=== PATIENT | male | born 1975 | race Caucasian/White ===

== ENCOUNTER 2019-01-09 11:28 | Emergency (ER) | payer OTHER, SELFPAY ==
[2019-01-09 11:22] VITALS: BP 107/67; BP 121/67; PULSE 64; PULSE 65; RESP 18; TEMP 36.4; O2SAT 100
--- NOTE | 2019-01-09 11:36 | DI.RAD.S_ITS ---
PROCEDURE: XR ABDOMEN 1V INDICATIONS: pain, syncope TECHNIQUE: One view of the abdomen acquired. COMPARISON: None. FINDINGS: Surgical changes and devices: None. Bowel: Bowel gas pattern is normal. Soft tissues: No suspicious abdominal calcifications. Visualized solid organ contours appear normal in size. Bones: No suspicious bony lesions. IMPRESSION: Normal for age, source of current abdominal pain symptoms is not seen. Dictated by: Abram Romano M.D. on 01/09/2019 at 12:11 Approved by: Abram Romano M.D. on 01/09/2019 at 12:11
--- NOTE | 2019-01-09 11:37 | DI.RAD.S_ITS ---
PROCEDURE: XR CHEST 1V INDICATIONS: chest pain, syncope TECHNIQUE: One view of the chest was acquired. COMPARISON: [facility], CHEST 1 VIEW, 10/04/2011, 23:00. [facility], CHEST 1 VIEW, 02/22/2008, 17:59. FINDINGS: Surgical changes and devices: None. Lungs and pleura: Lungs are clear. No pleural effusions or pneumothorax. Mediastinum: Mediastinal contours appear normal. Heart size is normal. Bones and chest wall: No suspicious bony lesions. Overlying soft tissues appear unremarkable. IMPRESSION: Normal for age considering reduced inspiratory volume, source of current chest pain symptoms is not seen. Dictated by: Abram Romano M.D. on 01/09/2019 at 12:11 Approved by: Abram Romano M.D. on 01/09/2019 at 12:11
[2019-01-09 11:47] LABS: Add Manual Diff / Slide Review NO; Basophils Absolute Auto 0 /uL (0-100); Basophils Percent Auto 0.3 % (0-2); Eosinophils Absolute Auto 100 /uL (0-450); Eosinophils Percent Auto 1.2 % (2-4); Hematocrit 44.7 % (41-53); Hemoglobin 15.2 g/dL (13.5-17.5); Lymphocytes Absolute Auto 4000 /uL (1100-4500); Lymphocytes Percent Auto 45.9 % (25-40); Mean Corpuscular Hemoglobin 30.3 PG (26-34); Mean Corpuscular Volume 89.3 fL (80-100); Monocytes Absolute Auto 700 /uL (0-900); Monocytes Percent Auto 8.1 % (3-14); Neutrophils Absolute Auto 3900 /uL (1500-7000); Neutrophils Percent Auto 44.5 % (50-75); Platelet Count 302 X10^3/uL (150-400); Red Blood Cell Count 5.01 X10^6/uL (4.5-5.9); Red Cell Distribution Width 13.2 % (11.6-14.8); White Blood Cell Count 8.8 X10^3/uL (4.5-11.0)
[2019-01-09 11:54] LABS: D Dimer 703 ng/mL (<230)
[2019-01-09 11:57] LABS: Alanine Aminotransferase 75 IU/L (21-72); Albumin 4.3 g/dL (3.5-5.0); Albumin Globulin Ratio 1.4 (1.0-2.8); Alkaline Phosphatase 97 U/L (38-126); Aspartate Aminotransferase 88 IU/L (17-59); Bilirubin Total 0.6 mg/dL (0.2-1.3); Blood Urea Nitrogen 16 mg/dL (9-20); Calcium 9.3 mg/dL (8.4-10.2); Carbon Dioxide 28 mmol/L (22-32); Chloride 105 mmol/L (98-107); Creatine Kinase 54 U/L (55-170); Estimated Glomerular Filt Rate > 60.0 mL/min (>60); Glucose 107 mg/dL (70-100); HEMOLYSIS 18 (0-50); Potassium 3.8 mmol/L (3.4-5.1); Sodium 141 mmol/L (137-145); Total Protein 7.3 g/dL (6.3-8.2)
[2019-01-09 12:04] LABS: B Type Natriuretic Peptide < 100 (<100)
[2019-01-09 12:09] LABS: Troponin I < 0.012 ng/mL (0.01-0.034)
--- NOTE | 2019-01-09 12:10 | DI.CT.S_ITS ---
PROCEDURE: CT ANGIO CHEST PE PROTOCOL INDICATIONS: chest pain, SOB, syncope, elevated trop/bnp/dimer TECHNIQUE: After the administration of intravenous contrast, 2 mm thick sections acquired from the pulmonary apices to the posterior costophrenic angles. 3-dimensional maximum intensity projection (MIP) coronal and sagittal reformats were then acquired through the thorax. For radiation dose reduction, the following was used: automated exposure control, adjustment of mA and/or kV according to patient size. COMPARISON: None. FINDINGS: Image quality: Excellent. Pulmonary arteries: Pulmonary arteries are normal in size, and demonstrate no intraluminal filling defects to suggest central pulmonary embolism. Lungs and pleura: Lungs are clear. No pleural effusions or pneumothorax. Central and peripheral airways are patent. Mediastinum: Heart size is normal, without pericardial effusion. No mediastinal or hilar adenopathy. Thoracic aorta is normal in caliber and enhancement. Circumferential wall thickening noted in the distal esophagus. Bones and chest wall: No suspicious bony lesions. Ribs and thoracic spine appear intact throughout. Spine degenerative disc disease and facet arthropathy.Thyroid gland is within normal limits where visualized. No axillary or supraclavicular adenopathy. Abdomen: Visualized upper abdominal solid organs appear normal in the early arterial phase of enhancement. IMPRESSION: 1. No pulmonary embolus 2. No lung consolidation or pleural fluid collections. 3. Circumferential wall thickening involving the distal esophagus. Recommend barium contrast an esophagram or endoscopy to exclude neoplastic process when clinically feasible. Dictated by: Skylar Navarrete MD, PhD on 01/09/2019 at 11:29 Approved by: Skylar Navarrete MD, PhD on 01/09/2019 at 11:35
[2019-01-09 12:11] VITALS: BP 123/72; PULSE 82; RESP 20; O2SAT 100
[2019-01-09] MEDS: SODIUM CHLORIDE 0.9% 1,000 ML 1000 ML IV (12:15)
--- NOTE | 2019-01-09 13:10 | ED_ITS ---
HPI - Syncope General Chief Complaint: Syncope Stated Complaint: syncope Time Seen by Provider: 01/09/19 11:32 Source: patient and EMS Mode of arrival: EMS Limitations: no limitations History of Present Illness HPI narrative: 43-year-old male nonsmoker without history of drinking presents by EMS evaluation of a syncopal episode after an episode of abdominal pain earlier today. He developed this pain and then felt himself become lightheaded and had a syncopal episode. He denies nausea or vomiting. He denies any history of the same. He denies recent injury, surgery or travel. He has had no fever or chills. He denies any chest pain or shortness of breath. He describes abdominal pain reaching across his epigastrium, nothing lower. He has had no change in bowel habits MD complaint: loss of consciousness and felt faint Onset (ago): hour(s) -: second(s) Prodromal symptoms: lightheaded Witnessed: yes - by bystander Context: at rest Injuries sustained associated with event: none Current symptoms: none Treatments prior to arrival: none Related Data Previous Rx's Medication Instructions Recorded ciprofloxacin HCl 500 mg PO BID #20 tab 01/09/19 hydrocodone-acetaminophen 1 tab PO Q4-6H PRN #10 tab 01/09/19 metronidazole [Flagyl] 500 mg PO Q8H 7 Days #21 tab 01/09/19 ondansetron 4 mg PO TID-QID PRN #10 tab 01/09/19 Allergies Allergy/AdvReac Type Severity Reaction Status Date / Time No Known Drug Allergies Allergy Verified 01/09/19 11:45 Review of Systems Constitutional Constitutional: Denies chills, Denies fatigue, Denies fever(s), Denies frequent falls, Denies lethargy and Denies weakness Eyes Eyes: Denies change in vision, Denies eye discharge, Denies irritation and Denies loss of vision ENT Ears, Nose, Mouth, and Throat: Denies change in voice, Denies dizziness, Denies neck pain, Denies sore throat and Denies throat swelling Cardiovascular Cardiovascular: Denies chest pain, Reports diaphoresis, Reports syncope, Denies irregular heart rhythm, Reports lightheadedness, Denies palpitations, Denies dyspnea, Denies dyspnea on exertion and Denies orthopnea Respiratory Respiratory: Denies cough, Denies dyspnea, Denies dyspnea on exertion and Denies wheezing Gastrointestinal Gastrointestinal: Reports abdominal pain, Denies change in bowel habits, Denies diarrhea, Denies nausea and Denies vomiting Genitourinary Genitourinary: Denies hematuria, Denies flank pain, Denies urinary incontinence and Denies urinary urgency Musculoskeletal Musculoskeletal: Denies back pain, Denies muscle weakness, Denies neck pain, Denies numbness and Denies tingling Integumentary/Breasts Skin/Breast: Denies pruritus, Denies erythema, Denies rash and Denies wounds Neurologic Neurologic: Denies behavioral changes, Denies confusion, Denies dizziness, Reports syncope, Denies frequent falls, Denies loss of vision, Denies numbness, Denies tingling and Denies weakness Psychiatric Psychiatric: Denies anxiety, Denies behavioral changes, Denies confusion, Denies depression, Denies homicidal ideation and Denies suicidal ideation Endocrine Endocrine: Denies fatigue, Denies flushing and Denies palpitations Hematologic/Lymphatic Hematologic/Lymphatic: Denies easy bruising Allergic/Immunologic Allergic/Immunologic: Denies urticaria, Denies throat swelling and Denies wheezing Patient History Surgical History Social History Smoking Status: Never smoker Social History Social History Smoking Status: Never smoker alcohol intake frequency: 0-2 drinks per day Substance Use Type: does not use Exam Narrative Exam Narrative: GENERAL: [43] year old patient appears stated age. Well- nourished, well-developed patient, in mild distress. Anxious, diaphoretic on arrival HEAD: Atraumatic. Normocephalic. EYES: Pupils equal round and reactive. Extraocular motions intact. No scleral icterus. No injection or drainage. ENT: Nose without bleeding, purulent drainage. Throat without erythema, tonsillar hypertrophy or exudate. Airway patent. NECK: Trachea midline. Non tender CARDIOVASCULAR: Regular rate and rhythm without murmurs, gallops, or rubs. RESPIRATORY: Clear to auscultation. Breath sounds equal bilaterally. No wheezes, rales, or rhonchi. GASTROINTESTINAL: Abdomen soft, tender in epigastrium, nondistended. EXTREMITIES: No edema or joint tenderness. BACK: Nontender without deformity or crepitance. No flank tenderness. NEURO: AOx3. SKIN: No rash or erythema of visible areas Initial Vital Signs Initial Vital Signs: Vital Signs Temperature 97.6 F 01/09/19 11:22 Pulse Rate 64 01/09/19 11:22 Respiratory Rate 18 01/09/19 11:22 Blood Pressure 121/67 01/09/19 11:22 Pulse Oximetry 100 01/09/19 11:22 Course Orders Ordered: ED Orders 01/09/19 11:36 XR abdomen 1V Stat B Type Natriuretic Peptide Stat Complete Blood Count AUTO DIFF Stat Comprehensive Metabolic Panel Stat D Dimer Stat Troponin & CK Cardiac Panel Stat EKG-12 Lead Stat 01/09/19 11:37 XR chest 1V Stat 01/09/19 12:10 CT angio chest PE protocol Stat 01/09/19 13:14 US abdomen complete Stat Discontinued Medications Sodium Chloride (Normal Saline 0.9%) 1,000 mls @ 1,000 mls/hr IV BOLUS ONE Stop: 01/09/19 12:35 Last Infusion: 01/09/19 13:37 Dose: 0 mls/hr Documented by: Admin: 01/09/19 12:15 Dose: 1,000 mls/hr Documented by: BERNA Sodium Chloride (Normal Saline 0.9%) 500 mls @ 1,000 mls/hr IV BOLUS ONE Stop: 01/09/19 14:50 Last Infusion: 01/09/19 15:33 Dose: 0 mls/hr Documented by: Admin: 01/09/19 14:29 Dose: 1,000 mls/hr Documented by: MINE Reevaluation(s) Reevaluation #1: Patient continues to rest comfortably Consultations Consultation #1: Discussion with on-call surgery. Given lack of white count, elevated bilirubin, vomiting, fever, or persistent pain the patient can be treated with outpatient medications and antibiotics and close follow-up with return precautions. Vital Signs Vital signs: Vital Signs - 8 hr 01/09/19 14:00 01/09/19 15:40 Pulse Rate 111 H 92 H Respiratory Rate 18 20 Blood Pressure 140/87 Blood Pressure [Left Arm] 143/89 H Pulse Oximetry 98 100 MDM - Syncope Lab Data Result diagrams: 01/09/19 11:36 01/09/19 11:36 Labs: Lab Results 01/09/19 01/09/19 01/09/19 Range/Units 11:36 11:36 11:36 WBC 8.8 (4.5-11.0) X10^3/uL RBC 5.01 (4.5-5.9) X10^6/uL Hgb 15.2 (13.5-17.5) g/dL Hct 44.7 (41-53) % MCV 89.3 (80-100) fL MCH 30.3 (26-34) PG MCHC 34.0 (30-36) % RDW 13.2 (11.6-14.8) % Plt Count 302 (150-400) X10^3/uL Neut % (Auto) 44.5 L (50-75) % Lymph % (Auto) 45.9 H (25-40) % [place] % (Auto) 8.1 (3-14) % Eos % (Auto) 1.2 L (2-4) % Baso % (Auto) 0.3 (0-2) % Neut # (Auto) 3900 (4979-2128) /uL Lymph # (Auto) 4000 (1417-0319) /uL [place] # (Auto) 700 (0-900) /uL Eos # (Auto) 100 (0-450) /uL Baso # (Auto) 0 (0-100) /uL D-Dimer 703 H (<230) ng/mL Sodium 141 (137-145) mmol/L Potassium 3.8 (3.4-5.1) mmol/L Chloride 105 (98-107) mmol/L Carbon Dioxide 28 (22-32) mmol/L BUN 16 (9-20) mg/dL Creatinine 0.80 (0.66-1.25) mg/dL Estimated GFR > 60.0 (>60) mL/min BUN/Creatinine Ratio 20.0 (6-22) Glucose 107 H (70-100) mg/dL Calcium 9.3 (8.4-10.2) mg/dL Total Bilirubin 0.6 (0.2-1.3) mg/dL AST 88 H (17-59) IU/L ALT 75 H (21-72) IU/L Alkaline Phosphatase 97 (38-126) U/L Total Creatine Kinase 54 L (55-170) U/L CK-MB (CK-2) TNP CK-MB (CK-2) Rel Index TNP Troponin I < 0.012 (0.01-0.034) ng/mL B-Natriuretic Peptide < 100 (<100) Total Protein 7.3 (6.3-8.2) g/dL Albumin 4.3 (3.5-5.0) g/dL Globulin 3.0 (1.7-4.1) g/dL Albumin/Globulin Ratio 1.4 (1.0-2.8) Point of Care Testing Glucose POC 133 Urine Dip Bedside Urine Glucose Negative Bedside Urine Bilirubin - Negative Bedside Urine Ketone - Negative Urine Specific [place] 1.010 Bedside Urine Occult Blood - Negative Bedside Urine pH 7.5 Bedside Urine Protein - Negative Bedside Urine Urobilinogen - Negative Bedside Urine Nitrite - Negative Bedside Urine Leukocytes - Negative Esterase Imaging Data Chest x-ray: Radiologist's impression: [address] [address] XRay Report Signed Patient: Lenin Whalen [facility]#: [id number] : 1975Acct:[id number] Age/Sex: 43 / MDate of Service: 01/09/19 Loc: ED Accession Number: [id number] Procedure: XR chest 1V Ordering Provider: Carlos Esteban D.O. PROCEDURE: XR CHEST 1V INDICATIONS: chest pain, syncope TECHNIQUE: One view of the chest was acquired. COMPARISON: [facility], , CHEST 1 VIEW, 10/04/2011, 23:00. [facility], , CHEST 1 VIEW, 02/22/2008, 17:59. FINDINGS: Surgical changes and devices: None. Lungs and pleura: Lungs are clear. No pleural effusions or pneumothorax. Mediastinum: Mediastinal contours appear normal. Heart size is normal. Bones and chest wall: No suspicious bony lesions. Overlying soft tissues appear unremarkable. IMPRESSION: Normal for age considering reduced inspiratory volume, source of current chest pain symptoms is not seen. Dictated by: Abram Romano M.D. on 01/09/2019 at 12:11 Approved by: Abram Romano M.D. on 01/09/2019 at 12:11 CT scan - chest: Radiologist's impression: MarleeJoelchandrakant I 43 M [address] [address] [address] Scan Report Signed Patient: Lenin Whalen [facility]#: [id number] : 1975Acct:[id number] Age/Sex: 43 / MDate of Service: 01/09/19 Loc: ED Accession Number: [id number] Procedure: CT angio chest PE protocol Ordering Provider: Carlos Esteban D.O. PROCEDURE: CT ANGIO CHEST PE PROTOCOL INDICATIONS: chest pain, SOB, syncope, elevated trop/bnp/dimer TECHNIQUE: After the administration of intravenous contrast, 2 mm thick sections acquired from the pulmonary apices to the posterior costophrenic angles. 3-dimensional maximum intensity projection (MIP) coronal and sagittal reformats were then acquired through the thorax. For radiation dose reduction, the following was used: automated exposure control, adjustment of mA and/or kV according to patient size. COMPARISON: None. FINDINGS: Image quality: Excellent. Pulmonary arteries: Pulmonary arteries are normal in size, and demonstrate no intraluminal filling defects to suggest central pulmonary embolism. Lungs and pleura: Lungs are clear. No pleural effusions or pneumothorax. Central and peripheral airways are patent. Mediastinum: Heart size is normal, without pericardial effusion. No mediastinal or hilar adenopathy. Thoracic aorta is normal in caliber and enhancement. Circumferential wall thickening noted in the distal esophagus. Bones and chest wall: No suspicious bony lesions. Ribs and thoracic spine appear intact throughout. Spine degenerative disc disease and facet arthropathy.Thyroid gland is within normal limits where visualized. No axillary or supraclavicular adenopathy. Abdomen: Visualized upper abdominal solid organs appear normal in the early arterial phase of enhancement. IMPRESSION: 1. No pulmonary embolus 2. No lung consolidation or pleural fluid collections. 3. Circumferential wall thickening involving the distal esophagus. Recommend barium contrast an esophagram or endoscopy to exclude neoplastic process when clinically feasible. Dictated by: Skylar Navarrete MD, PhD on 01/09/2019 at 11:29 Approved by: Skylar Navarrete MD, PhD on 01/09/2019 at 11:35 US - abdomen: Radiologist's impression: [address] [address] Ultrasound Report Signed Patient: Lenin Whalen [facility]#: [id number] : 1975Acct:[id number] Age/Sex: 43 / MDate of Service: 01/09/19 Loc: ED Accession Number: [id number] Procedure: US abdomen complete Ordering Provider: Carlos Esteban D.O. PROCEDURE: US ABDOMEN COMPLETE INDICATIONS: SEVERE EPIGASTRIC PAIN TECHNIQUE: Real-time scanning was performed of the abdominal and retroperitoneal organs, with image documentation. COMPARISON: None. FINDINGS: Liver: Liver is normal in size and homogeneous in echotexture except for slight prominence of the echogenicity along the vessel marsh along the portal triads. This may indicate presence of mild periportal edema.. Gallbladder: The gallbladder contains at least 3 non-mobile echogenic shadowing stones with additional debris, with the largest stone measuring up to 1.2 cm. Biliary ducts: Not seen due to bowel gas Pancreas: Visualized portions of the pancreas are sonographically normal. Spleen: Spleen is at upper limits of normal in size at 13 mm craniocaudad and homogeneous in echotexture. Kidneys: Kidneys are normal in size and echotexture. Right kidney measures 12.8 cm long; left kidney measures 13.9 cm long. No hydronephrosis or nephrolithiasis. No solid masses. Possible mild hydronephrosis versus normal anatomic variant prominence of the renal collecting system bilaterally. Aorta: Visualized aorta is normal in caliber at less than 3 cm. Iliacs: Proximal common iliac arteries are normal in caliber at less than 2.5 cm. IVC: Intrahepatic inferior vena cava is patent. Miscellaneous: No free abdominal fluid. IMPRESSION: 1. Gallstones present within the gallbladder lumen, which do not appear fully mobile. Gallbladder wall thickening is not present, nor is there focal tenderness but episodic biliary colic may be associated. 2. No intra-or extrahepatic biliary distention found but the common duct is poorly seen due to overlying bowel gas near the pancreas. 3. Nonspecific appearance of the renal pelvis bilaterally slightly prominent, but considered more likely a manifestation of normal anatomic variant extrarenal pelvis rather than true hydronephrosis. Dictated by: Abram Romano M.D. on 01/09/2019 at 14:49 Approved by: Abram Romano M.D. on 01/09/2019 at 14:53 Discharge Plan Departure Patient Disposition: Home Clinical Impression: Biliary colic Discharge Date/Time: 01/09/19 15:40 Instructions: DI for Biliary Colic Activity Restrictions/Additional Instructions: 1. Drink plenty of fluids with frequent small sips. 2. For the next 24 hours a clear liquid diet is advised. After that please employ a brat diet which would include bananas, rice, apples, toast. 3. Please take medications as directed. 4. Please follow-up with [facility]. Call the office and let them know we ask that you be seen in follow up. 5. Please return to the emergency Department for any worsening or persistent symptoms, such as vomiting, increasing pain or fever. Prescriptions: New hydrocodone-acetaminophen 5-325 mg tablet 1 tab PO Q4-6H PRN (Reason: pain) Qty: 10 RF: 0 ondansetron 4 mg tablet,disintegrating 4 mg PO TID-QID PRN (Reason: nausea and vomiting) Qty: 10 RF: 0 metronidazole [Flagyl] 500 mg tablet 500 mg PO Q8H 7 Days Qty: 21 RF: 0 ciprofloxacin HCl 500 mg tablet 500 mg PO BID Qty: 20 RF: 0 Referrals: Andreas Ray MD [Physician] - Keshawn Gandhi MD [Primary Care Provider] -
--- NOTE | 2019-01-09 13:14 | DI.US.S_ITS ---
PROCEDURE: US ABDOMEN COMPLETE INDICATIONS: SEVERE EPIGASTRIC PAIN TECHNIQUE: Real-time scanning was performed of the abdominal and retroperitoneal organs, with image documentation. COMPARISON: None. FINDINGS: Liver: Liver is normal in size and homogeneous in echotexture except for slight prominence of the echogenicity along the vessel marsh along the portal triads. This may indicate presence of mild periportal edema.. Gallbladder: The gallbladder contains at least 3 non-mobile echogenic shadowing stones with additional debris, with the largest stone measuring up to 1.2 cm. Biliary ducts: Not seen due to bowel gas Pancreas: Visualized portions of the pancreas are sonographically normal. Spleen: Spleen is at upper limits of normal in size at 13 mm craniocaudad and homogeneous in echotexture. Kidneys: Kidneys are normal in size and echotexture. Right kidney measures 12.8 cm long; left kidney measures 13.9 cm long. No hydronephrosis or nephrolithiasis. No solid masses. Possible mild hydronephrosis versus normal anatomic variant prominence of the renal collecting system bilaterally. Aorta: Visualized aorta is normal in caliber at less than 3 cm. Iliacs: Proximal common iliac arteries are normal in caliber at less than 2.5 cm. IVC: Intrahepatic inferior vena cava is patent. Miscellaneous: No free abdominal fluid. IMPRESSION: 1. Gallstones present within the gallbladder lumen, which do not appear fully mobile. Gallbladder wall thickening is not present, nor is there focal tenderness but episodic biliary colic may be associated. 2. No intra-or extrahepatic biliary distention found but the common duct is poorly seen due to overlying bowel gas near the pancreas. 3. Nonspecific appearance of the renal pelvis bilaterally slightly prominent, but considered more likely a manifestation of normal anatomic variant extrarenal pelvis rather than true hydronephrosis. Dictated by: Abram Romano M.D. on 01/09/2019 at 14:49 Approved by: Abram Romano M.D. on 01/09/2019 at 14:53
[2019-01-09 14:00] VITALS: BP 143/89; PULSE 111; RESP 18; O2SAT 98
[2019-01-09] MEDS: SODIUM CHLORIDE 0.9% 500 ML 1000 ML IV (14:29)
[2019-01-09 15:40] VITALS: BP 140/87; PULSE 92; RESP 20; O2SAT 100
== END 2019-01-09 15:40 | disposition home or self-care (01) ==
PROVIDERS: Emergency Provider Emergency Medicine; PCP Internal Medicine
DX: K80.50 Calculus of bile duct without cholangitis or cholecystitis without obstruction (principal); R10.13 Epigastric pain; R07.9 Chest pain, unspecified; R06.02 Shortness of breath; R55 Syncope and collapse; R42 Dizziness and giddiness; R79.89 Other specified abnormal findings of blood chemistry
CPT/HCPCS: 36415; 71045; 71275; 74018; 76700; 80053; 81003; 82550; 82962; 83880; 84484; 85025; 85379; 93005; 96360; 96361; 99283; 99285; Q9967

== ENCOUNTER 2019-01-30 09:36 | Emergency (ER) | payer OTHER, SELFPAY ==
[2019-01-30 09:40] VITALS: BP 148/98; PULSE 115; RESP 20; O2SAT 96; BMI 37.6
[2019-01-30 10:03] VITALS: TEMP 36.9
[2019-01-30 10:12] LABS: INR 1.1 (0.9-1.3); Prothrombin Time 13.2 SECONDS (10.1-12.7)
[2019-01-30 10:14] LABS: PTT Partial Thromboplastin Tim 34 SECONDS (26.4-36.2)
[2019-01-30 10:15] LABS: Add Manual Diff / Slide Review NO; Basophils Absolute Auto 0 /uL (0-100); Basophils Percent Auto 0.5 % (0-2); Eosinophils Absolute Auto 300 /uL (0-450); Eosinophils Percent Auto 2.7 % (2-4); Hematocrit 44.6 % (41-53); Hemoglobin 15.5 g/dL (13.5-17.5); Lymphocytes Absolute Auto 1500 /uL (1100-4500); Lymphocytes Percent Auto 15.1 % (25-40); Mean Corpuscular HGB Conc 34.7 % (30-36); Mean Corpuscular Hemoglobin 30.7 PG (26-34); Mean Corpuscular Volume 88.5 fL (80-100); Monocytes Absolute Auto 900 /uL (0-900); Monocytes Percent Auto 8.9 % (3-14); Neutrophils Absolute Auto 7400 /uL (1500-7000); Neutrophils Percent Auto 72.8 % (50-75); Platelet Count 229 X10^3/uL (150-400); Red Blood Cell Count 5.05 X10^6/uL (4.5-5.9); Red Cell Distribution Width 13.3 % (11.6-14.8); White Blood Cell Count 10.2 X10^3/uL (4.5-11.0)
[2019-01-30 10:17] LABS: Alanine Aminotransferase 59 IU/L (<50); Albumin 4.2 g/dL (3.5-5.0); Albumin Globulin Ratio 1.3 (1.0-2.8); Alkaline Phosphatase 108 U/L (38-126); Aspartate Aminotransferase 33 IU/L (17-59); BUN Creatinine Ratio 8.8 (6-22); Bilirubin Total 0.8 mg/dL (0.2-1.3); Blood Urea Nitrogen 7 mg/dL (9-20); Calcium 9.3 mg/dL (8.4-10.2); Carbon Dioxide 26 mmol/L (22-32); Chloride 105 mmol/L (98-107); Estimated Glomerular Filt Rate > 60.0 mL/min (>60); Globulin 3.3 g/dL (1.7-4.1); Glucose 109 mg/dL (70-100); HEMOLYSIS < 15 (0-50); Lipase 28 U/L (23-300); Potassium 3.5 mmol/L (3.4-5.1); Sodium 138 mmol/L (137-145); Total Protein 7.5 g/dL (6.3-8.2)
--- NOTE | 2019-01-30 11:56 | DI.CT.S_ITS ---
PROCEDURE: CT ABDOMEN PELVIS W CON INDICATIONS: LLQ pain with fever TECHNIQUE: After the administration of intravenous contrast, 5 mm thick sections acquired from the diaphragm to the symphysis. 5 mm coronal and sagittal reformats were acquired. For radiation dose reduction, the following was used: automated exposure control, adjustment of mA and/or kV according to patient size. COMPARISON: [facility], , US ABDOMEN COMPLETE, 01/09/2019, 13:40. FINDINGS: Image quality: Diagnostic ABDOMEN: Lung bases: Lung bases are clear. Heart size is normal. Solid organs: Liver is normal in size and enhancement. Gallbladder is not inflamed or enlarged. Biliary system is non dilated. Pancreatic atrophy is present with fatty infiltration. No inflammation is evident surrounding the pancreas.. Spleen is normal in size and enhancement. No adrenal nodules. Kidneys demonstrate normal size and enhancement, without hydronephrosis. Peritoneum and bowel: Moderate areas of wall thickening are evident involving the descending colon, sigmoid colon, and rectum. Additional patchy areas of mild wall thickening are evident involving small bowel loops within the right lower quadrant. Fatty infiltration involving the wall of the terminal ileum is evident. No dilated small bowel loops are evident. The appendix is not clearly evident. No free fluid, loculated fluid collection or free air is identified. There is a small hiatal hernia. Nodes and vessels: No retroperitoneal or mesenteric adenopathy by size criteria. Aorta and inferior vena cava are normal in size. Miscellaneous: No acute fracture or dislocation is identified. There is no suspicious osseous lesion. PELVIS: Genitourinary: Bladder wall thickness is normal. Miscellaneous: There may be a small fat containing left internal hernia. No right ankle hernia. No pelvic adenopathy is appreciated. No free fluid or loculated fluid collections are identified. Bones: No suspicious bony lesions. No acute pelvic fractures are evident. [id number] degenerative changes of the hips are noted. IMPRESSION: 1. There is wall thickening involving the distal colon are suspicious for colitis. 2. Small bowel wall thickening involving multiple right lower quadrant small bowel loops and fatty infiltration of the terminal ileum may represent a chronic inflammatory process, such as seen with Crohn's disease and clinical correlation is recommended. 3. No bowel obstruction. 4. Hiatal hernia. 5. Small fat containing left inguinal hernia. Dictated by: David Andrews M.D. on 01/30/2019 at 11:27 Approved by: David Andrews M.D. on 01/30/2019 at 11:31
[2019-01-30 12:12] VITALS: BP 152/92; PULSE 98; RESP 18; O2SAT 97
--- NOTE | 2019-01-30 13:28 | ED.ABDPAIN ---
HPI - Abdominal Pain <VOLODYMYR Noland - Last Filed: 01/31/19 03:16> General Chief Complaint: Abdominal Pain Stated Complaint: gallbladder issue has worsen surg 02/10 for it Time Seen by Provider: 01/30/19 11:17 Source: patient Mode of arrival: Ambulatory Limitations: no limitations History of Present Illness HPI narrative: This is a 43-year-old gentleman, nonsmoker, who presents to ED with chief complain of left lower quadrant pain, nausea and nonbloody- diarrhea after each meals. Patient reports he has bowel movements about 6 to 7 times a day and has foot particles to loose watery stool. Patient also reports intermittent fever and T-max as 102 degree, night sweats and chills. Patient describes his discomfort as pressure. He has been on bland diet for last couple of weeks due to gallstones. Patient was evaluated in ED on 01/09/2019 and diagnosed with gallstones per ultrasound test and is scheduled to have cholecystectomy on 02/10/2019. Then, patient had right upper quadrant discomfort with this. Patient was discharged to home with 7 day course of Flagyl and 10 day course of Cipro after the visit and he had completed the medication on 01/19/19. Patient denies exposure to illness, eating bad food, international travel, history of diverticulosis or diverticulitis. Related Data Previous Rx's Medication Instructions Recorded ciprofloxacin HCl [Cipro] 500 mg PO BID 10 Days #20 tab 01/30/19 metronidazole [Flagyl] 500 mg PO TID 7 Days #21 tab 01/30/19 ondansetron 4 mg PO BID-TID PRN #7 tab 01/30/19 metronidazole [Flagyl] 500 mg PO TID 3 Days #9 tab 01/31/19 Allergies Allergy/AdvReac Type Severity Reaction Status Date / Time No Known Drug Allergies Allergy Verified 01/26/19 13:54 Review of Systems <VOLODYMYR Noland - Last Filed: 01/31/19 03:16> Review of Systems Narrative: General: See HPI HEENT: Denies sinus pain, ear pain, sore throat, difficulty swallowing, dizziness. Respiratory: Denies dyspnea, cough, wheezing, hemoptysis, sputum. Cardiovascular: Denies chest pain, palpitations, orthopnea, edema. Gastrointestinal: See HPI : Denies dysuria, frequency, incontinence, hematuria, urinary retention. Musculoskeletal: Denies weakness, joint pain or bony pain. Skin: Denies rash, skin lesions, or other. Neurologic: Denies weakness, headache, numbness, change in speech, confusion, seizures, incoordination. Psychiatric: No concerning psychosocial issues. 12-point review of systems is negative except for those stated above. Patient History <VOLODYMYR Noland - Last Filed: 01/31/19 03:16> Medical History Biliary colic (Acute) Gallstones (Acute) Obesity (Acute) Social History Smoking Status: Never smoker alcohol intake frequency: holidays/special occasions only Substance Use Type: does not use Exam <VOLODYMYR Noland - Last Filed: 01/31/19 03:16> Narrative Exam Narrative: GEN: Alert, oriented x 3, well appearing and nourished, and in no acute distress. Head: Normal cephalic, atraumatic. No scalp or temporal tenderness, palpable mass or rash. EYES: Pupils are equal, round, and reactive to light and accommodation. Extraocular muscles are intact bilaterally. There is no subconjunctival hemorrhage, exudate and sclera non-icteric. Nystagmus in bilateral eyes. ENT: Bilateral auditory canals and tympanic membranes clear. Hearing grossly intact. Nose without bleeding, purulent discharge or deviation. Facial sinuses nontender to palpate. Mucous membrane moist, no mucosal lesion. Throat without erythema, tonsillar hypertrophy or exudate. Uvula in midline, airway patent. Neck: Trachea in midline. No JVD, non-tender without lymphadenopathy. No masses or thyroid megaly. Supple, non-tender and no meningeal signs. CARDIAC: Normal regular rate and rhythm without murmurs, gallops, or rubs. No chest wall tenderness. No peripheral edema, cyanosis or pallor. Capillary refill is less than 2 seconds. RESPIRATORY: Lungs are clear to auscultate bilaterally. No cough, wheezes, rales, or rhonchi. No stridor, respiratory distress, increase work of breathing, or accessary muscle used. ABD: Abdomen soft, tender to palpate left lower quadrant and non-distended. No guarding or rebound tenderness to palpate. Bowel sounds are normal in all 4 quadrants. There is no palpable masses or organomegaly. EXT: Full painless ROM of all extremities with no loss of sensation, strength, effusion or edema. SKIN: Warm, dry, normal color for patient. No erythema, lesions or rash over visible areas. BACK: Nontender without deformity or crepitance. No flank tenderness. NEUROLOGICAL: Alert and oriented to place, time and person. Sensation and motor function intact bilaterally. No facial droops, dysphasia. PSYCHIATRIC: Good judgement and reason, without hallucinations, abnormal affect or abnormal behaviors during the examination. Patient is not suicidal. Initial Vital Signs Initial Vital Signs: Vital Signs Pulse Rate 115 H 01/30/19 09:40 Respiratory Rate 20 01/30/19 09:40 Blood Pressure 148/98 H 01/30/19 09:40 Pulse Oximetry 96 01/30/19 09:40 <Chuy Anders DO - Last Filed: 01/31/19 05:10> Initial Vital Signs Initial Vital Signs: Vital Signs Pulse Rate 115 H 01/30/19 09:40 Respiratory Rate 20 01/30/19 09:40 Blood Pressure 148/98 H 01/30/19 09:40 Pulse Oximetry 96 01/30/19 09:40 Scores <VOLODYMYR Noland - Last Filed: 01/31/19 03:16> GCS [place] coma scale eye opening: Spontaneous Jone coma scale verbal response: Orientated Jone coma scale motor response: Obey commands Jone coma scale total score: 15 Course <VOLODYMYR Noland - Last Filed: 01/31/19 03:16> Orders Ordered: ED Orders 01/30/19 09:55 Complete Blood Count AUTO DIFF Stat Comprehensive Metabolic Panel Stat Lactate (Lactic Acid) Stat Lipase Stat Partial Thromboplastin Time Stat Prothrombin Time INR Stat 01/30/19 10:20 EKG-12 Lead Stat 01/30/19 11:29 GI Panel (Film Array) Stat 01/30/19 11:56 CT abdomen pelvis w con Stat Reevaluation(s) Reevaluation #1: no change in abd pain. Time: 13:35 Consultations Consultation #1: DR. Younger and will evaluate the patient in ER. Time: 13:35 Vital Signs Vital signs: Vital Signs - 8 hr 01/30/19 09:40 01/30/19 10:03 01/30/19 12:12 Temperature 98.5 F Pulse Rate 115 H 98 H Respiratory Rate 20 18 Blood Pressure 148/98 H Blood Pressure [Left Arm] 152/92 H Pulse Oximetry 96 97 <Chuy Anders DO - Last Filed: 01/31/19 05:10> Orders Ordered: ED Orders 01/30/19 09:55 Complete Blood Count AUTO DIFF Stat Comprehensive Metabolic Panel Stat Lactate (Lactic Acid) Stat Lipase Stat Partial Thromboplastin Time Stat Prothrombin Time INR Stat 01/30/19 10:20 EKG-12 Lead Stat 01/30/19 11:29 GI Panel (Film Array) Stat 01/30/19 11:56 CT abdomen pelvis w con Stat Vital Signs Vital signs: Vital Signs - 8 hr 01/30/19 09:40 01/30/19 10:03 01/30/19 12:12 Temperature 98.5 F Pulse Rate 115 H 98 H Respiratory Rate 20 18 Blood Pressure 148/98 H Blood Pressure [Left Arm] 152/92 H Pulse Oximetry 96 97 MDM - Abdominal Pain <VOLODYMYR Noland - Last Filed: 01/31/19 03:16> Differential Diagnosis Differential diagnosis: Likely abdominal pain, diverticulitis and other (C diff infection, colitis, perforated bowel) Medical Records Attestation: I reviewed the patient's medical records. Lab Data Attestation: I reviewed the patient's lab results. Result diagrams: 01/30/19 09:55 01/30/19 09:55 Labs: Lab Results 01/30/19 01/30/19 01/30/19 Range/Units 09:55 09:55 09:55 WBC 10.2 (4.5-11.0) X10^3/uL RBC 5.05 (4.5-5.9) X10^6/uL Hgb 15.5 (13.5-17.5) g/dL Hct 44.6 (41-53) % MCV 88.5 (80-100) fL MCH 30.7 (26-34) PG MCHC 34.7 (30-36) % RDW 13.3 (11.6-14.8) % Plt Count 229 (150-400) X10^3/uL Neut % (Auto) 72.8 (50-75) % Lymph % (Auto) 15.1 L (25-40) % Linn % (Auto) 8.9 (3-14) % Eos % (Auto) 2.7 (2-4) % Baso % (Auto) 0.5 (0-2) % Neut # (Auto) 7400 H (2918-8220) /uL Lymph # (Auto) 1500 (1418-4154) /uL Linn # (Auto) 900 (0-900) /uL Eos # (Auto) 300 (0-450) /uL Baso # (Auto) 0 (0-100) /uL PT 13.2 H (10.1-12.7) SECONDS INR 1.1 (0.9-1.3) APTT 34 (26.4-36.2) SECONDS Sodium 138 (137-145) mmol/L Potassium 3.5 (3.4-5.1) mmol/L Chloride 105 (98-107) mmol/L Carbon Dioxide 26 (22-32) mmol/L BUN 7 L (9-20) mg/dL Creatinine 0.80 (0.66-1.25) mg/dL Estimated GFR > 60.0 (>60) mL/min BUN/Creatinine Ratio 8.8 (6-22) Glucose 109 H (70-100) mg/dL Lactate (0.7-2.1) mmol/L Calcium 9.3 (8.4-10.2) mg/dL Total Bilirubin 0.8 (0.2-1.3) mg/dL AST 33 (17-59) IU/L ALT 59 H (<50) IU/L Alkaline Phosphatase 108 (38-126) U/L Total Protein 7.5 (6.3-8.2) g/dL Albumin 4.2 (3.5-5.0) g/dL Globulin 3.3 (1.7-4.1) g/dL Albumin/Globulin Ratio 1.3 (1.0-2.8) Lipase 28 (23-300) U/L Stl C. cayetanensis PCR (Not Detect) Stool Rotavirus (PCR) (Not Detect) Stool Adenovirus (PCR) (Not Detect) Stool Astrovirus (PCR) (Not Detect) Stool Cryptosporidium PCR (Not Detect) Stl E.coli Shiga Tox PCR (Not Detect) St Sh/Enteroin Ecoli PCR (Not Detect) Stool E coli O157 PCR (Not Detect) Stl Enterotoxigenic E PCR (Not Detect) Stool EPEC (PCR) (Not Detect) Stl E. histolytica PCR (Not Detect) Stool Giardia Lamblia PCR (Not Detect) Stool Sapovirus (PCR) (Not Detect) Stl P. shigelloides PCR (Not Detect) St Y.enterocolitica PCR (Not Detect) Stool Vibrio (PCR) (Not Detect) Stl Vibrio cholerae PCR (Not Detect) Stl Enteroaggr Ecoli PCR (Not Detect) Stl Norovirus GI/GII PCR (Not Detect) Campylobacter (PCR) (Not Detect) C. difficile Tox (PCR) (Not Detect) Salmonella (PCR) (Not Detect) 01/30/19 01/30/19 Range/Units 09:55 14:07 WBC (4.5-11.0) X10^3/uL RBC (4.5-5.9) X10^6/uL Hgb (13.5-17.5) g/dL Hct (41-53) % MCV (80-100) fL MCH (26-34) PG MCHC (30-36) % RDW (11.6-14.8) % Plt Count (150-400) X10^3/uL Neut % (Auto) (50-75) % Lymph % (Auto) (25-40) % Linn % (Auto) (3-14) % Eos % (Auto) (2-4) % Baso % (Auto) (0-2) % Neut # (Auto) (4557-6499) /uL Lymph # (Auto) (6469-0367) /uL Linn # (Auto) (0-900) /uL Eos # (Auto) (0-450) /uL Baso # (Auto) (0-100) /uL PT (10.1-12.7) SECONDS INR (0.9-1.3) APTT (26.4-36.2) SECONDS Sodium (137-145) mmol/L Potassium (3.4-5.1) mmol/L Chloride (98-107) mmol/L Carbon Dioxide (22-32) mmol/L BUN (9-20) mg/dL Creatinine (0.66-1.25) mg/dL Estimated GFR (>60) mL/min BUN/Creatinine Ratio (6-22) Glucose (70-100) mg/dL Lactate 1.0 (0.7-2.1) mmol/L Calcium (8.4-10.2) mg/dL Total Bilirubin (0.2-1.3) mg/dL AST (17-59) IU/L ALT (<50) IU/L Alkaline Phosphatase (38-126) U/L Total Protein (6.3-8.2) g/dL Albumin (3.5-5.0) g/dL Globulin (1.7-4.1) g/dL Albumin/Globulin Ratio (1.0-2.8) Lipase (23-300) U/L Stl C. cayetanensis PCR Not detected (Not Detect) Stool Rotavirus (PCR) Not detected (Not Detect) Stool Adenovirus (PCR) Not detected (Not Detect) Stool Astrovirus (PCR) Not detected (Not Detect) Stool Cryptosporidium PCR Not detected (Not Detect) Stl E.coli Shiga Tox PCR Not detected (Not Detect) St Sh/Enteroin Ecoli PCR Not detected (Not Detect) Stool E coli O157 PCR Not detected (Not Detect) Stl Enterotoxigenic E PCR Not detected (Not Detect) Stool EPEC (PCR) Not detected (Not Detect) Stl E. histolytica PCR Not detected (Not Detect) Stool Giardia Lamblia PCR Not detected (Not Detect) Stool Sapovirus (PCR) Not detected (Not Detect) Stl P. shigelloides PCR Not detected (Not Detect) St Y.enterocolitica PCR Not detected (Not Detect) Stool Vibrio (PCR) Not detected (Not Detect) Stl Vibrio cholerae PCR Not detected (Not Detect) Stl Enteroaggr Ecoli PCR Not detected (Not Detect) Stl Norovirus GI/GII PCR Not detected (Not Detect) Campylobacter (PCR) Not detected (Not Detect) C. difficile Tox (PCR) Detected H (Not Detect) Salmonella (PCR) Not detected (Not Detect) Imaging Data CT scan - abdomen: Radiologist's impression: [address] [address] [address] Scan Report Signed Patient: Lenin Whalen [facility]#: [id number] : 1975Acct:[id number] Age/Sex: 43 / MDate of Service: 01/30/19 Loc: ED Accession Number: [id number] Procedure: CT abdomen pelvis w con Ordering Provider: Remy Nielsen PROCEDURE: CT ABDOMEN PELVIS W CON INDICATIONS: LLQ pain with fever TECHNIQUE: After the administration of intravenous contrast, 5 mm thick sections acquired from the diaphragm to the symphysis. 5 mm coronal and sagittal reformats were acquired. For radiation dose reduction, the following was used: automated exposure control, adjustment of mA and/or kV according to patient size. COMPARISON: [facility], , US ABDOMEN COMPLETE, 01/09/2019, 13:40. FINDINGS: Image quality: Diagnostic ABDOMEN: Lung bases: Lung bases are clear. Heart size is normal. Solid organs: Liver is normal in size and enhancement. Gallbladder is not inflamed or enlarged. Biliary system is non dilated. Pancreatic atrophy is present with fatty infiltration. No inflammation is evident surrounding the pancreas.. Spleen is normal in size and enhancement. No adrenal nodules. Kidneys demonstrate normal size and enhancement, without hydronephrosis. Peritoneum and bowel: Moderate areas of wall thickening are evident involving the descending colon, sigmoid colon, and rectum. Additional patchy areas of mild wall thickening are evident involving small bowel loops within the right lower quadrant. Fatty infiltration involving the wall of the terminal ileum is evident. No dilated small bowel loops are evident. The appendix is not clearly evident. No free fluid, loculated fluid collection or free air is identified. There is a small hiatal hernia. Nodes and vessels: No retroperitoneal or mesenteric adenopathy by size criteria. Aorta and inferior vena cava are normal in size. Miscellaneous: No acute fracture or dislocation is identified. There is no suspicious osseous lesion. PELVIS: Genitourinary: Bladder wall thickness is normal. Miscellaneous: There may be a small fat containing left internal hernia. No right ankle hernia. No pelvic adenopathy is appreciated. No free fluid or loculated fluid collections are identified. Bones: No suspicious bony lesions. No acute pelvic fractures are evident. [id number] degenerative changes of the hips are noted. IMPRESSION: 1. There is wall thickening involving the distal colon are suspicious for colitis. 2. Small bowel wall thickening involving multiple right lower quadrant small bowel loops and fatty infiltration of the terminal ileum may represent a chronic inflammatory process, such as seen with Crohn's disease and clinical correlation is recommended. 3. No bowel obstruction. 4. Hiatal hernia. 5. Small fat containing left inguinal hernia. Dictated by: David Andrews M.D. on 01/30/2019 at 11:27 Approved by: David Andrews M.D. on 01/30/2019 at 11:31 [facility] Narrative Medical decision making narrative: This is a 43-year-old gentleman who was recently diagnosed with gallstone and discharged to home with a course of antibiotic medication of Flagyl and Cipro who return to ED today with left lower quadrant pain with constitutional symptoms. Patient had completed antibiotic medications on 01/19/19. Patient is scheduled elective gallstone removal in 02/10/19. Patient denies history of colitis, diverticulitis in the past. Today's lab test was unremarkable. Patient was able to provide stool sample but the cultures pending. CT of abdomen pelvis was obtained indicated for possible colitis, multiple patchy areas in terminal ileum may indicating Crohn's disease. These findings were discussed with and she evaluated patient at the bedside. Patient offered pain medication but declined. Patient also declined admission for observation and colonoscopy. Patient agrees to follow up next week with [facility] and to schedule outpatient colonoscopy. Patient was discharged to home with another course of Cipro and Flagyl and probiotic per Dr. Younger and return precautions were discussed with the patient. Patient verbalized understanding and treatment plan. The patient's stool culture result came back in late evening and shows a positive test result for C diff. Patient will be contacted in the morning by morning nursing staff to stop Cipro and continue with Flagyl 500 mg t.i.d. dose for up to 10 days. Additional 3 day course of Flagyl 500 mg t.i.d. does was transmitted to [facility] pharmacy. <Chuy Anders DO - Last Filed: 01/31/19 05:10> Lab Data Labs: Lab Results 01/30/19 01/30/19 01/30/19 Range/Units 09:55 09:55 09:55 WBC 10.2 (4.5-11.0) X10^3/uL RBC 5.05 (4.5-5.9) X10^6/uL Hgb 15.5 (13.5-17.5) g/dL Hct 44.6 (41-53) % MCV 88.5 (80-100) fL MCH 30.7 (26-34) PG MCHC 34.7 (30-36) % RDW 13.3 (11.6-14.8) % Plt Count 229 (150-400) X10^3/uL Neut % (Auto) 72.8 (50-75) % Lymph % (Auto) 15.1 L (25-40) % Linn % (Auto) 8.9 (3-14) % Eos % (Auto) 2.7 (2-4) % Baso % (Auto) 0.5 (0-2) % Neut # (Auto) 7400 H (6691-7539) /uL Lymph # (Auto) 1500 (8739-2015) /uL Linn # (Auto) 900 (0-900) /uL Eos # (Auto) 300 (0-450) /uL Baso # (Auto) 0 (0-100) /uL PT 13.2 H (10.1-12.7) SECONDS INR 1.1 (0.9-1.3) APTT 34 (26.4-36.2) SECONDS Sodium 138 (137-145) mmol/L Potassium 3.5 (3.4-5.1) mmol/L Chloride 105 (98-107) mmol/L Carbon Dioxide 26 (22-32) mmol/L BUN 7 L (9-20) mg/dL Creatinine 0.80 (0.66-1.25) mg/dL Estimated GFR > 60.0 (>60) mL/min BUN/Creatinine Ratio 8.8 (6-22) Glucose 109 H (70-100) mg/dL Lactate (0.7-2.1) mmol/L Calcium 9.3 (8.4-10.2) mg/dL Total Bilirubin 0.8 (0.2-1.3) mg/dL AST 33 (17-59) IU/L ALT 59 H (<50) IU/L Alkaline Phosphatase 108 (38-126) U/L Total Protein 7.5 (6.3-8.2) g/dL Albumin 4.2 (3.5-5.0) g/dL Globulin 3.3 (1.7-4.1) g/dL Albumin/Globulin Ratio 1.3 (1.0-2.8) Lipase 28 (23-300) U/L Stl C. cayetanensis PCR (Not Detect) Stool Rotavirus (PCR) (Not Detect) Stool Adenovirus (PCR) (Not Detect) Stool Astrovirus (PCR) (Not Detect) Stool Cryptosporidium PCR (Not Detect) Stl E.coli Shiga Tox PCR (Not Detect) St Sh/Enteroin Ecoli PCR (Not Detect) Stool E coli O157 PCR (Not Detect) Stl Enterotoxigenic E PCR (Not Detect) Stool EPEC (PCR) (Not Detect) Stl E. histolytica PCR (Not Detect) Stool Giardia Lamblia PCR (Not Detect) Stool Sapovirus (PCR) (Not Detect) Stl P. shigelloides PCR (Not Detect) St Y.enterocolitica PCR (Not Detect) Stool Vibrio (PCR) (Not Detect) Stl Vibrio cholerae PCR (Not Detect) Stl Enteroaggr Ecoli PCR (Not Detect) Stl Norovirus GI/GII PCR (Not Detect) Campylobacter (PCR) (Not Detect) C. difficile Tox (PCR) (Not Detect) Salmonella (PCR) (Not Detect) 01/30/19 01/30/19 Range/Units 09:55 14:07 WBC (4.5-11.0) X10^3/uL RBC (4.5-5.9) X10^6/uL Hgb (13.5-17.5) g/dL Hct (41-53) % MCV (80-100) fL MCH (26-34) PG MCHC (30-36) % RDW (11.6-14.8) % Plt Count (150-400) X10^3/uL Neut % (Auto) (50-75) % Lymph % (Auto) (25-40) % Linn % (Auto) (3-14) % Eos % (Auto) (2-4) % Baso % (Auto) (0-2) % Neut # (Auto) (7020-4119) /uL Lymph # (Auto) (8563-8913) /uL Linn # (Auto) (0-900) /uL Eos # (Auto) (0-450) /uL Baso # (Auto) (0-100) /uL PT (10.1-12.7) SECONDS INR (0.9-1.3) APTT (26.4-36.2) SECONDS Sodium (137-145) mmol/L Potassium (3.4-5.1) mmol/L Chloride (98-107) mmol/L Carbon Dioxide (22-32) mmol/L BUN (9-20) mg/dL Creatinine (0.66-1.25) mg/dL Estimated GFR (>60) mL/min BUN/Creatinine Ratio (6-22) Glucose (70-100) mg/dL Lactate 1.0 (0.7-2.1) mmol/L Calcium (8.4-10.2) mg/dL Total Bilirubin (0.2-1.3) mg/dL AST (17-59) IU/L ALT (<50) IU/L Alkaline Phosphatase (38-126) U/L Total Protein (6.3-8.2) g/dL Albumin (3.5-5.0) g/dL Globulin (1.7-4.1) g/dL Albumin/Globulin Ratio (1.0-2.8) Lipase (23-300) U/L Stl C. cayetanensis PCR Not detected (Not Detect) Stool Rotavirus (PCR) Not detected (Not Detect) Stool Adenovirus (PCR) Not detected (Not Detect) Stool Astrovirus (PCR) Not detected (Not Detect) Stool Cryptosporidium PCR Not detected (Not Detect) Stl E.coli Shiga Tox PCR Not detected (Not Detect) St Sh/Enteroin Ecoli PCR Not detected (Not Detect) Stool E coli O157 PCR Not detected (Not Detect) Stl Enterotoxigenic E PCR Not detected (Not Detect) Stool EPEC (PCR) Not detected (Not Detect) Stl E. histolytica PCR Not detected (Not Detect) Stool Giardia Lamblia PCR Not detected (Not Detect) Stool Sapovirus (PCR) Not detected (Not Detect) Stl P. shigelloides PCR Not detected (Not Detect) St Y.enterocolitica PCR Not detected (Not Detect) Stool Vibrio (PCR) Not detected (Not Detect) Stl Vibrio cholerae PCR Not detected (Not Detect) Stl Enteroaggr Ecoli PCR Not detected (Not Detect) Stl Norovirus GI/GII PCR Not detected (Not Detect) Campylobacter (PCR) Not detected (Not Detect) C. difficile Tox (PCR) Detected H (Not Detect) Salmonella (PCR) Not detected (Not Detect) Discharge Plan Departure Patient Disposition: Home Clinical Impression: Colitis Discharge Date/Time: 01/30/19 15:16 Instructions: DI for Colitis Activity Restrictions/Additional Instructions: You have been diagnosed with [colitis and possible Crohn's disease. Stool sample is being cultured at this time. The blood tests are unremarkable today.]. What to do: *Take your medications as directed. Please restart Cipro and Flagyl today. Please to not take alcohol while you're on Flagyl and after couple of days since this will make it feeling sick. Take Zofran as needed for discomfort. You can take Tylenol Motrin as needed for discomfort. Please incorporate probiotics in her daily medication regimen. *Follow up with your primary care provider in 2-3 days, call for an appointment. Please follow up with [facility] next week for re-evaluation under stomach and to schedule outpatient colonoscopy. Let them know you were seen in the ED and that we asked you to be seen in follow up. *Return to ED if you have any new, worsening, or concerning symptoms, such as [worsening pain, fever, unable to tolerate fluids, chest pain, breathing difficulty, or any acute concerns]. Prescriptions: New metronidazole [Flagyl] 500 mg tablet 500 mg PO TID 7 Days Qty: 21 RF: 0 ciprofloxacin HCl [Cipro] 500 mg tablet 500 mg PO BID 10 Days Qty: 20 RF: 0 ondansetron 4 mg tablet,disintegrating 4 mg PO BID-TID PRN (Reason: nausea and vomiting) Qty: 7 RF: 0 metronidazole [Flagyl] 500 mg tablet 500 mg PO TID 3 Days Qty: 9 RF: 0 Referrals: Keshawn Gandhi MD [Primary Care Provider] - Justa Younger MD [Physician] - <Chuy Anders DO - Last Filed: 01/31/19 05:10> Sign Out Provider Sign Out Attestation: Dr Anders Co-Sign Statement: I was available for consultation during this patient's emergency department visit. This chart is signed by myself for administrative purposes only. I did not have direct contact with this patient during this visit. They were seen independently by the APC.
[2019-01-30 14:31] VITALS: BP 147/97; PULSE 93; RESP 18; O2SAT 99
--- NOTE | 2019-01-30 14:35 | P.CONS_ITS ---
History of Present Illness Consult details Date Patient Seen: 01/30/19 Time Patient Seen: 14:36 Chief complaint: gallbladder issue has worsen surg 02/10 for it Reason for consult: CT scan with patchy bowel inflammation Narrative: This is a 43-year-old man who was seen a few weeks ago by 1 of my colleagues for symptomatic cholelithiasis and scheduled for laparoscopic cholecystectomy February 10. He was put on a 10 day course of Cipro on a 7 day course of Flagyl by his primary care provider in mid December for his right upper quadrant pain. He finished his antibiotics about a week and a half ago. About 3 days ago he started having left lower quadrant pain and diarrhea. He notices he will go to the bathroom and have loose stools about 5-6 times every time he eats a meal. He has had some intermittent fevers at home, but is afebr ile here. He has a normal white blood cell count, but his CT scan shows some patchy inflammation of his colon and small bowel. Stool studies have been sent. The patient denies any personal history of ?bowel issues,?and no personal or family history of autoimmune disorders. He has never had a colonoscopy. ROS: Constitutional: Reports subjective fevers, Denies chills, Denies headache(s), reports mild malaise Eyes: Denies change in vision, Denies itchy eyes, Denies loss of vision and Denies other visual disturbances ENT: Denies difficulty swallowing, Denies neck pain, Denies neck swelling, Denies dry mouth Cardiovascular: Denies chest pain, Denies palpitations, Denies shortness of breath Respiratory: Denies dyspnea, and Denies chronic cough Gastrointestinal: Reports abdominal pain, Denies bloating, reports intermittent diarrhea, Denies melena, Denies hematochezia Genitourinary: Denies hematuria, Denies pyuria and Denies urinary frequency, Denies inguinal hernia, Denies groin pain Musculoskeletal: Denies abnormal gait, Denies myalgias, Denies arthralgias, Denies limited range of motion and Denies neck pain Psychiatric: Denies behavioral changes, Denies change in appetite, Denies confusion, Denies difficulty concentrating, Denies auditory hallucinations Endocrine: Denies excessive sweating and Denies palpitations Hematologic/Lymphatic: Denies easy bleeding, Denies easy bruising and Denies lymphadenopathy Allergic/Immunologic: Denies itchy eyes, rash, swelling [facility] Medical History (Updated 01/30/19 @ 16:50 by Jusat Younger MD) Biliary colic (Acute) Gallstones (Acute) Obesity (Acute) Social History Smoking Status: Never smoker Meds Home Medications and Allergies Home Medications Medication Instructions Recorded Confirmed Type ciprofloxacin HCl [Cipro] 500 mg PO BID 10 Days #20 tab 01/30/19 Rx metronidazole [Flagyl] 500 mg PO TID 7 Days #21 tab 01/30/19 Rx ondansetron 4 mg PO BID-TID PRN #7 tab 01/30/19 Rx Allergies Allergy/AdvReac Type Severity Reaction Status Date / Time No Known Drug Allergies Allergy Verified 01/26/19 13:54 Exam Vital Signs (past 8 hours): - 01/30/19 09:40 01/30/19 10:03 01/30/19 12:12 Temperature 98.5 F Pulse Rate 115 H 98 H Respiratory Rate 20 18 Blood Pressure 148/98 H Blood Pressure [Left Arm] 152/92 H Pulse Oximetry 96 97 Oxygen Delivery Method Room Air Objective Labs Result Diagrams: 01/30/19 09:55 01/30/19 09:55 Labs: Laboratory Results - last 24 hr 01/30/19 01/30/19 01/30/19 09:55 09:55 09:55 WBC 10.2 RBC 5.05 Hgb 15.5 Hct 44.6 MCV 88.5 MCH 30.7 MCHC 34.7 RDW 13.3 Plt Count 229 Neut % (Auto) 72.8 Lymph % (Auto) 15.1 L [place] % (Auto) 8.9 Eos % (Auto) 2.7 Baso % (Auto) 0.5 Neut # (Auto) 7400 H Lymph # (Auto) 1500 [place] # (Auto) 900 Eos # (Auto) 300 Baso # (Auto) 0 PT 13.2 H INR 1.1 APTT 34 Sodium 138 Potassium 3.5 Chloride 105 Carbon Dioxide 26 BUN 7 L Creatinine 0.80 Estimated GFR > 60.0 BUN/Creatinine Ratio 8.8 Glucose 109 H Lactate Calcium 9.3 Total Bilirubin 0.8 AST 33 ALT 59 H Alkaline Phosphatase 108 Total Protein 7.5 Albumin 4.2 Globulin 3.3 Albumin/Globulin Ratio 1.3 Lipase 28 01/30/19 09:55 WBC RBC Hgb Hct MCV MCH MCHC RDW Plt Count Neut % (Auto) Lymph % (Auto) [place] % (Auto) Eos % (Auto) Baso % (Auto) Neut # (Auto) Lymph # (Auto) [place] # (Auto) Eos # (Auto) Baso # (Auto) PT INR APTT Sodium Potassium Chloride Carbon Dioxide BUN Creatinine Estimated GFR BUN/Creatinine Ratio Glucose Lactate 1.0 Calcium Total Bilirubin AST ALT Alkaline Phosphatase Total Protein Albumin Globulin Albumin/Globulin Ratio Lipase Assessment & Plan Assessment and plan (1) Biliary colic: Current visit: No Status: Acute (2) Gallstones: Current visit: No Status: Acute (3) Obesity: Current visit: No Status: Acute (4) Colitis: Problem details: This is a 43-year-old man with history of symptomatic cholelithiasis. He comes in with mild left lower quadrant pain for the past 3 days associated with intermittent diarrhea. He has had some subjective fevers as well. In the ER he does not have an elevated white count, although he does have a left shift. He has some patchy inflammation of his colon and small bowel on CT scan. I have had a long discussion with him regarding his symptoms, and the findings on our labs and CT scan studies. I have expressed to him my concern that I do not know exactly what the cause of his symptoms is. This may be just a simple gastroenteritis, it may be an infectious colitis, it may be an early presentation of inflammatory bowel disease, or may be a response to the prior course of antibiotics that he just completed. I have offered 2 options. One is to go home on oral antibiotics to include Flagyl, and to take a probiotic at home, with plans to follow up with me next week and schedule a colonoscopy to evaluate him for colitis. The 2nd option is to be admitted to the hospital for close observation, antibiotics, and bowel prep tonight for colonoscopic evaluation tomorrow. The patient says he really does not feel that bad, and he had not intended to come into the ER, however he had gone to the urgent care and they were concerned and sent him to the ER. I explained to him that if his symptoms get worse, he needs to come right back to the ER. I have explained to him the importance of following up to see me in schedule colonoscopy. He agrees with this plan. Plan: Sent home with a course of antibiotics to include Flagyl Send stool studies before the patient leaves today Have the patient follow up with me next week Strict return precautions for the patient to come back in the hospital should his symptoms worsen at all Current visit: No Status: Acute
[2019-01-30 15:12] VITALS: PULSE 91; O2SAT 98
[2019-01-30 15:37] LABS: Adenovirus F 40/41 Not Detected (Not Detect); Astrovirus Not Detected (Not Detect); Campylobacter Not Detected (Not Detect); Clostridium difficile toxin AB Detected (Not Detect); Cryptosporidium Not Detected (Not Detect); Cyclospora cayetanensis Not Detected (Not Detect); Entamoeba histolytica Not Detected (Not Detect); Enteroaggregative E.coli Not Detected (Not Detect); Enteropathogenic E.coli Not Detected (Not Detect); Enterotoxigenic E.coli It/st Not Detected (Not Detect); Giardia lamblia Not Detected (Not Detect); Norovirus GI/GII Not Detected (Not Detect); Plesiomonsa shigelloides Not Detected (Not Detect); Salmonella Not Detected (Not Detect); Shiga-like toxin-prod E.coli Not Detected (Not Detect); Shigella/Enteroinvasive E.coli Not Detected (Not Detect); Vibrio Not Detected (Not Detect); Vibrio cholerae Not Detected (Not Detect); Yersinia enterocolitica Not Detected (Not Detect)
[2019-01-30 15:38] LABS: Rotavirus A Not Detected (Not Detect); Sapovirus Not Detected (Not Detect)
== END 2019-01-30 15:16 | disposition home or self-care (01) ==
PROVIDERS: Emergency Medicine; Emergency Provider Nurse Practitioner Family; PCP Internal Medicine
DX: K52.9 Noninfective gastroenteritis and colitis, unspecified (principal); K80.20 Calculus of gallbladder without cholecystitis without obstruction; K80.50 Calculus of bile duct without cholangitis or cholecystitis without obstruction; R10.32 Left lower quadrant pain; E66.9 Obesity, unspecified
CPT/HCPCS: 36415; 74177; 80053; 83605; 83690; 85025; 85610; 85730; 87507; 93005; 93010; 99283; 99285; Q9967

== ENCOUNTER 2019-02-10 07:25 | Day surgery (SDC) | payer OTHER, SELFPAY ==
[2019-02-03 12:04] VITALS: BMI 39.3
[2019-02-10] VITALS (7 sets, daily range): BP systolic 109–138; BP diastolic 69–96; PULSE 65–97; RESP 13–16; TEMP 35.9–37.9; O2SAT 96–100; BMI 38.2
--- NOTE | 2019-02-10 | PATH_ITS ---
[facility] Accession Number: [id number] . 01 Material submitted: . gallbladder - GALLBLADDER AND CONTENTS . 01 Clinical history: . LAP RAYSA . 02 Diagnosis: Gallbladder and Contents, Cholecystectomy: Cholelithiasis with chronic cholecystitis. No evidence of neoplasm. MRV 02/13/2019 1106 Local . 02 Electronically signed: . Jesus Lambert MD, PhD, Pathologist NPI- [id number] . 01 Gross description: . Specimen is received in a formalin-filled container, labeled gallbladder and contents, and consists of a pink-zurita, smooth cauterized, intact gallbladder, 7.7 x 4.3 x 3.0 cm, in which the cystic duct margin is inked blue. There is a single transmural defect along the body and fundus of the gallbladder, up to 2.3 cm. There are three green-yellow bosselated calculi present, 1.1 cm up to 1.3 cm. The mucosa is pink-zurita, diffusely trabeculated, focally velvety with scattered yellow stippling. The gallbladder wall thickness averages 0.3 cm. Offset Platemaker sections including blue-inked cystic duct margin are submitted in A1. ([id number]) /MRV 02/11/2019 1616 Local . 02 Pathologist provided ICD-10: K80.60 . 02 CPT . 113684 Performed at: 01 [facility] [address] [facility], [place], [place] [id number] MD Luis Holley MD Phone: [phone] Performed at: 02 [facility] [place] [address] [place], [place] [id number] MD Esme Kelly MD Phone: [phone]
[2019-02-10] MEDS: LACTATED RINGERS 1,000 ML 100 ML IV (08:14)
--- NOTE | 2019-02-10 09:03 | PM.PREOP ---
Pre-operative Note Interval Note History & Physical reviewed/Exam performed by Physician: Yes Changes to H&P: No
[2019-02-10] MEDS: CEFAZOLIN 2 GM/100 ML FROZ.PIGGY IV (09:35)
--- NOTE | 2019-02-10 09:56 | SUR.OPER ---
Supine on padded OR bed, head on pillow, safety belt at thigh, arms secured on padded arm board <90 degrees abduction. Legs uncrossed. Padded footboard in place. Tape over blanket to secure lower legs.
[2019-02-10] MEDS: BUPIVACAINE 0.25% (PF) VIAL 30 ML INJ (10:01)
--- NOTE | 2019-02-10 10:55 | PM.OP.1 ---
Operative Date/Time/Diagnoses Date of procedure: 02/10/19 Time of procedure: 10:55 Pre-op diagnosis: biliary dyskinesia Post-op diagnosis: same Procedure & Clinicians Procedure: laparoscopic cholecystectomy Same procedure as scheduled: Yes Indications: 43 male with biliary colic US with gallstones presents for elective cholecystectomy Surgeon: Duglas Gan Click Yes if Unassisted: Yes Anesthesia Type: General Operative Notes Findings: gallstones Specimen(s): other (gallstones) Estimated Blood Loss (mL): 10 Procedure in detail: The patient was brought to the operating room placed supine on the table. Bilateral lower extremity compression devices were applied. General anesthesia was induced and they were intubated with an endotracheal tube. They received 2g Ancef prior to skin incision. A time-out was performed to ensure the correct patient procedure necessary equipment within the operating room. They were then prepped and draped in the usual sterile fashion. Infraumbilical incision was made the umbilical stalk was grasped and elevated and the fascia was sharply incised. The abdomen was entered atraumatically. A 10 mm trocar was then placed into the abdomen. Pneumoperitoneum was established. The laparoscopic camera was inserted into the abdomen inspection was made that demonstrated no evidence of injury upon entry. We then placed our working ports the 1st 5 mm port high in the epigastrium and then 2 in the right upper quadrant. The gallbladder appeared chronically inflamed. The gallbladder was grasped and retracted over the liver and grasped laterally by the fundus. The triangle of Calot was exposed. The triangle of calot was then skeletonized using hook electrocautery and demonstrated the cystic duct clearly entering the gallbladder the cystic artery and the liver and in the background. With the critical view of safety established the cystic duct was clipped twice proximally and once distally and then sharply divided and the cystic artery was taken in the same fashion. Next the gallbladder was removed from the liver bed using electro cautery. The liver bed was then inspected for hemostasis and this was achieved. The abdomen was irrigated with sterile saline and inspection was made that showed the clips in good position. The specimen was removed using Endo-Catch. The abdomen was desufflated. The the fascia of the umbilicus was closed with 0 Vicryl in a [id number] fashion. Skin incisions were irrigated and closed with 4-0 Monocryl. The wounds were sealed with Dermabond. Patient emerged from general anesthesia was extubated and transferred to the postoperative care unit missed stable condition. The sponge and instrument count at the end of the operation was correct. Complications: none Post-operative Condition: stable Disposition: same day surgery
[2019-02-10] MEDS: OXYCODONE/ACETAMINOPHEN 5/325 TABLET 1 TAB PO (11:30)
== END 2019-02-10 12:41 | disposition home or self-care (01) ==
PROVIDERS: Visit Provider Surgery
PROC: 0FT44ZZ Resection of Gallbladder, Percutaneous Endoscopic Approach (ICD-10-PCS; CPT 47562; principal; 2019-02-10 08:45)
DX: K80.20 Calculus of gallbladder without cholecystitis without obstruction (principal)
CPT/HCPCS: 47562; J0690; J2704; J3010

== ENCOUNTER → 2019-03-19 08:41 | Outpatient (CLI) | payer OTHER, SELFPAY ==
[2019-03-19 09:58] LABS: Alanine Aminotransferase 74 IU/L (<50); Albumin 4.5 g/dL (3.5-5.0); Albumin Globulin Ratio 1.4 (1.0-2.8); Alkaline Phosphatase 109 U/L (38-126); Aspartate Aminotransferase 46 IU/L (17-59); BUN Creatinine Ratio 17.1 (6-22); Bilirubin Total 0.9 mg/dL (0.2-1.3); Blood Urea Nitrogen 12 mg/dL (9-20); Calcium 9.5 mg/dL (8.4-10.2); Carbon Dioxide 28 mmol/L (22-32); Chloride 104 mmol/L (98-107); Cholesterol 190 mg/dL (140-199); Estimated Glomerular Filt Rate > 60.0 mL/min (>60); Globulin 3.2 g/dL (1.7-4.1); Glucose 95 mg/dL (70-100); HDL Cholesterol 38 mg/dL (40-60); HEMOLYSIS < 15 (0-50); LDL Cholesterol Calculated 117 mg/dL (<100); Potassium 3.7 mmol/L (3.4-5.1); Sodium 140 mmol/L (137-145); Total Protein 7.7 g/dL (6.3-8.2); Triglycerides 177 mg/dL (35-150)
[2019-03-19 10:56] LABS: TSH w/ Reflex to FT4 1.82 uIU/mL (0.47-4.68)
== END ==
PROVIDERS: Visit Provider Family Medicine
DX: Z13.220 Encounter for screening for lipoid disorders (principal); Z13.29 Encounter for screening for other suspected endocrine disorder
CPT/HCPCS: 36415; 80053; 80061; 84443

== ENCOUNTER 2020-04-19 09:13 | Emergency (ER) | payer OTHER, SELFPAY ==
[2020-04-19] VITALS (11 sets, daily range): BP systolic 129–159; BP diastolic 70–98; PULSE 90–149; RESP 20–29; TEMP 37.1; O2SAT 94–99; BMI 40.4
--- NOTE | 2020-04-19 09:21 | DI.RAD.S_ITS ---
PROCEDURE: XR CHEST 1V INDICATIONS: chest pain TECHNIQUE: One view of the chest was acquired. COMPARISON: [facility], CR, XR CHEST 1V, 01/09/2019, 12:37. FINDINGS: Surgical changes and devices: None. Lungs and pleura: Lungs are clear. No pleural effusions or pneumothorax. Mediastinum: Mediastinal contours appear normal. Heart size is normal. Bones and chest wall: No suspicious bony lesions. Overlying soft tissues appear unremarkable. IMPRESSION: No acute cardiopulmonary pathology. Dictated by: Sebastian Sanchez M.D. on 04/19/2020 at 9:46 Approved by: Sebastian Sanchez M.D. on 04/19/2020 at 9:46
[2020-04-19 09:36] LABS: Add Manual Diff / Slide Review NO; Basophils Absolute Auto 0 /uL (0-100); Basophils Percent Auto 0.6 % (0-2); Eosinophils Absolute Auto 100 /uL (0-450); Eosinophils Percent Auto 1.5 % (2-4); Hematocrit 47.3 % (41-53); Hemoglobin 16.9 g/dL (13.5-17.5); Lymphocytes Absolute Auto 3300 /uL (1100-4500); Mean Corpuscular HGB Conc 35.8 % (30-36); Mean Corpuscular Hemoglobin 31.4 PG (26-34); Mean Corpuscular Volume 87.7 fL (80-100); Monocytes Absolute Auto 600 /uL (0-900); Monocytes Percent Auto 7.8 % (3-14); Neutrophils Absolute Auto 3900 /uL (1500-7000); Neutrophils Percent Auto 49.1 % (50-75); Platelet Count 274 X10^3/uL (150-400); Red Blood Cell Count 5.39 X10^6/uL (4.5-5.9); Red Cell Distribution Width 13.1 % (11.6-14.8)
--- NOTE | 2020-04-19 09:36 | ED.CHESTPAIN ---
HPI - Chest Pain General Chief Complaint: Chest Pain Stated Complaint: high heart rate,tightness in chest getting worse Time Seen by Provider: 04/19/20 09:17 Source: patient Mode of arrival: Ambulatory Limitations: no limitations History of Present Illness HPI narrative: This is a 44-year-old male comes in with complaint of some tightness in his chest and a high heart rate. Patient states he noticed that tightness on and off for the last several days became constant this morning about 3:00 a.m.. Patient states he also noted that his pulse is been elevated as well as his blood pressure. His blood pressures typically 125 it has been fairly consistently 150-160. Patient states his phone has noted that his heart rates been about 100 consistently this morning. Patient states he has maybe felt a little lightheaded he has not had any syncope. He states that moving or exerting himself increases his heart rate and the tightness in his chest. He denies any shortness of breath. No pleuritic chest pain. Does not radiate. Patient states he did have a temperature of a 100? F, denies any chills. No cough, cold or congestive type symptoms. Patient denies any nausea, no emesis. No diarrhea or constipation. No urinary symptoms. He denies any swelling in his extremities. Patient states he had similar episode about 10 or 15 years ago but nothing since then. He denies any other past medical issues besides congenital nystagmus. Patient states he had a cholecystectomy in the past and he had some sort of surgery on his eyes as a child. He denies any allergies to medications. Denies any tobacco, alcohol or illicit. Family history includes a grandfather had a heart attack in his 60s or 70s, he states his mother has her issues he does not know the specifics but states they started in her 60's. Related Data Previous Rx's Medication Instructions Recorded famotidine [Pepcid] 40 mg PO DAILY #30 tab 04/19/20 Allergies Allergy/AdvReac Type Severity Reaction Status Date / Time No Known Drug Allergies Allergy Verified 04/19/20 09:22 Review of Systems Review of Systems ROS Unobtainable: All systems reviewed & are unremarkable except as noted in HPI and below Patient History Medical History Biliary colic Gallstones Obesity Obesity (BMI 30-39.9) Tinnitus Surgical History Anesthesia History of cholecystectomy Status post cholecystectomy Family History Father Sharla's chorea Mother No problems noted. Grandfather Diabetes mellitus History of heart disease Grandmother No problems noted. Grandfather No problems noted. Grandmother Gentry's chorea Social History household members: family Smoking Status: Never smoker alcohol intake: current (1-2 drinks per year ) substance use type: does not use Smoking Status: Never smoker alcohol intake frequency: holidays/special occasions only Substance Use Type: does not use Exam Narrative Exam Narrative: GENERAL: Alert and oriented x three, obese male in mild distress HEENT: Head normocephalic, atraumatic, EOMI, nystagmus bilateral eyes without provocation, pupils reactive, face symmetric, moist mucous membranes NECK: Supple, full range of motion CARDIOVASCULAR: Regular rate and rhythm without murmurs, rubs or gallops. RESPIRATORY: Breath sounds equal bilaterally, no wheezes rales or rhonchi. ABDOMEN: Soft, nontender. Normoactive bowel sounds all 4 quadrants. No guarding or rebound, rigidity, no mass : No CVA tenderness EXTREMITIES: Normal range of motion, no edema bilateral lower extremities. Neurovascularly intact NEUROLOGICAL: Cranial nerves II through XII grossly intact. Moving all extremities SKIN: Warm, dry, no petechiae, no rashes or lesions. Initial Vital Signs Initial Vital Signs: Vital Signs Temperature 98.8 F 04/19/20 09:18 Pulse Rate 149 H 04/19/20 09:18 Respiratory Rate 29 H 04/19/20 09:18 Blood Pressure 159/98 H 04/19/20 09:18 Pulse Oximetry 97 04/19/20 09:18 Scores HEART Score Heart Score history: Slightly Suspicious Heart Score EKG: Non-Specific repolarization disturbance Heart Score Age: < 45 years old Heart Score risk factors: 1-2 risk factors Heart Score troponin: < or = to normal limit Heart Score Total: 2 PERC Score Age greater than or equal to 50 years: No Heart rate greater than or equal to 100 bpm: Yes Room Air O2 Sat less than 95%: No Unilateral leg swelling: No Recent trauma or surgery: No Hemoptysis: No Prior PE or DVT: No Hormone Use: No Total PERC Score: 1 Course Orders Ordered: ED Orders 04/19/20 10:31 CT angio chest PE protocol Stat Discontinued Medications Al Hydrox/Mg Hydrox/Simethicone 20 ml/ Lidocaine HCl 15 ml 0 ml PO NOW ONE Stop: 04/19/20 11:36 Last Admin: 04/19/20 11:45 Dose: 35 ml Documented by: TORY Sodium Chloride (Normal Saline 0.9%) 1,000 mls @ 1,000 mls/hr IV BOLUS ONE Stop: 04/19/20 10:56 Last Admin: 04/19/20 10:00 Dose: 1,000 mls/hr Documented by: TORY Reevaluation(s) Reevaluation #1: Patient states mild improvement of pain. Patient and I reviewed labs, imaging and EKG findings. He does have some distal thickening which was noted on prior imaging as well. Also a new pulmonary nodule. We did discuss that he is repeat CT imaging in 6-12 months to evaluate the nodule to make sure it is not changing growing. Plan to try GI cocktail this seems less likely as the cause of his symptoms. He does state that movement of his body also worsens his symptoms so he may have a costochondritis or musculoskeletal component. Time: 11:36 Vital Signs Vital signs: Vital Signs - 8 hr 04/19/20 11:30 04/19/20 11:31 04/19/20 12:00 Pulse Rate 90 93 H 92 H Respiratory Rate 23 21 26 H Blood Pressure 133/70 129/91 H Pulse Oximetry 97 97 98 MDM - Chest Pain Lab Data Attestation: I reviewed the patient's lab results. Result diagrams: 04/19/20 09:31 04/19/20 09:31 Labs: Lab Results 04/19/20 04/19/20 04/19/20 Range/Units 09:00 09:31 09:31 WBC 8.0 (4.5-11.0) X10^3/uL RBC 5.39 (4.5-5.9) X10^6/uL Hgb 16.9 (13.5-17.5) g/dL Hct 47.3 (41-53) % MCV 87.7 (80-100) fL MCH 31.4 (26-34) PG MCHC 35.8 (30-36) % RDW 13.1 (11.6-14.8) % Plt Count 274 (150-400) X10^3/uL Neut % (Auto) 49.1 L (50-75) % Lymph % (Auto) 41.0 H (25-40) % [place] % (Auto) 7.8 (3-14) % Eos % (Auto) 1.5 L (2-4) % Baso % (Auto) 0.6 (0-2) % Neut # (Auto) 3900 (3125-3721) /uL Lymph # (Auto) 3300 (7473-3650) /uL [place] # (Auto) 600 (0-900) /uL Eos # (Auto) 100 (0-450) /uL Baso # (Auto) 0 (0-100) /uL PT 12.3 (10.1-12.7) SECONDS INR 1.1 (0.9-1.3) APTT 36 (26.4-36.2) SECONDS D-Dimer (<230) ng/mL Sodium (137-145) mmol/L Potassium (3.4-5.1) mmol/L Chloride (98-107) mmol/L Carbon Dioxide (22-32) mmol/L BUN (9-20) mg/dL Creatinine (0.66-1.25) mg/dL Estimated GFR (>60) mL/min BUN/Creatinine Ratio (6-22) Glucose (70-100) mg/dL Lactate 2.0 (0.7-2.1) mmol/L Calcium (8.4-10.2) mg/dL Total Bilirubin (0.2-1.3) mg/dL AST (17-59) IU/L ALT (<50) IU/L Alkaline Phosphatase (38-126) U/L Total Creatine Kinase (55-170) U/L CK-MB (CK-2) CK-MB (CK-2) Rel Index Troponin I (0.01-0.034) ng/mL Total Protein (6.3-8.2) g/dL Albumin (3.5-5.0) g/dL Globulin (1.7-4.1) g/dL Albumin/Globulin Ratio (1.0-2.8) Lipase (23-300) U/L SARS-CoV-2 (PCR) (Negative) 04/19/20 04/19/20 04/19/20 Range/Units 09:31 09:31 10:25 WBC (4.5-11.0) X10^3/uL RBC (4.5-5.9) X10^6/uL Hgb (13.5-17.5) g/dL Hct (41-53) % MCV (80-100) fL MCH (26-34) PG MCHC (30-36) % RDW (11.6-14.8) % Plt Count (150-400) X10^3/uL Neut % (Auto) (50-75) % Lymph % (Auto) (25-40) % [place] % (Auto) (3-14) % Eos % (Auto) (2-4) % Baso % (Auto) (0-2) % Neut # (Auto) (0116-3102) /uL Lymph # (Auto) (0183-8917) /uL [place] # (Auto) (0-900) /uL Eos # (Auto) (0-450) /uL Baso # (Auto) (0-100) /uL PT (10.1-12.7) SECONDS INR (0.9-1.3) APTT (26.4-36.2) SECONDS D-Dimer 723 H (<230) ng/mL Sodium 138 (137-145) mmol/L Potassium 3.4 (3.4-5.1) mmol/L Chloride 103 (98-107) mmol/L Carbon Dioxide 27 (22-32) mmol/L BUN 13 (9-20) mg/dL Creatinine 0.81 (0.66-1.25) mg/dL Estimated GFR > 60.0 (>60) mL/min BUN/Creatinine Ratio 16.0 (6-22) Glucose 125 H (70-100) mg/dL Lactate (0.7-2.1) mmol/L Calcium 9.3 (8.4-10.2) mg/dL Total Bilirubin 1.1 (0.2-1.3) mg/dL AST 31 (17-59) IU/L ALT 38 (<50) IU/L Alkaline Phosphatase 111 (38-126) U/L Total Creatine Kinase 60 (55-170) U/L CK-MB (CK-2) TNP CK-MB (CK-2) Rel Index TNP Troponin I < 0.012 (0.01-0.034) ng/mL Total Protein 8.0 (6.3-8.2) g/dL Albumin 4.6 (3.5-5.0) g/dL Globulin 3.4 (1.7-4.1) g/dL Albumin/Globulin Ratio 1.4 (1.0-2.8) Lipase 81 (23-300) U/L SARS-CoV-2 (PCR) Negative (Negative) Imaging Data Chest x-ray: Radiologist's Impression: [address] [id number] ReportSigned Patient: Lenin Whalen IMR#: [id number]: [id number]:[id number]/Sex: 44 / MDate of Service: 04/19/20Loc: EDAccession Number: [id number] Procedure: XR chest 1V Ordering Provider: Jane Fuentes D.O. PROCEDURE: XR CHEST 1V INDICATIONS: chest pain TECHNIQUE: One view of the chest was acquired. COMPARISON: [facility], , XR CHEST 1V, 01/09/2019, 12:37. FINDINGS: Surgical changes and devices: None. Lungs and pleura: Lungs are clear. No pleural effusions or pneumothorax. Mediastinum: Mediastinal contours appear normal. Heart size is normal. Bones and chest wall: No suspicious bony lesions. Overlying soft tissues appear unremarkable. IMPRESSION: No acute cardiopulmonary pathology. Dictated by: Sebastian Sanchez M.D. on 04/19/2020 at 9:46 Approved by: Sebastian Sanchez M.D. on 04/19/2020 at 9:46 ECG Data Attestation: I personally reviewed and interpreted this ECG as follows: Prior ECG tracings: available for review Interpretation: Sinus tachycardia rate of 133, [place] 152 QRS of [address] elevation depression appreciated. Appears similar to priors. MDM Narrative Medical decision making narrative: A 44-year-old male who comes emergency department complaint of chest started about 3:00 a.m. today, he had some episodes yesterday. His labs, EKG and imaging do not show any acute cause. He did have an elevated D-dimer with otherwise normal labs. EKG appears similar to priors with no acute changes with negative troponin 6 hours after onset of symptoms cardiac source is less likely. CT imaging showed a pulmonary nodule that was new compared to prior CT imaging in December of 2018 and showed stable esophageal thickening which was noted on the prior CT as well. Patient's tachycardia has resolved he has only had about 150 cc of IV fluid so far. We did try GI cocktail to see if this would be helpful although his description of symptoms seem less likely that reflux would be a source of his pain. Patient did have improvement with gi cocktail. Discharge Plan Departure Patient Disposition: Home Clinical Impression: Chest pain, Dehydration Instructions: DI for Atypical Chest Pain Activity Restrictions/Additional Instructions: Follow up with your physician regarding your chest pain. I would discuss with your physician if they feel a stress test would be appropriate. You may try an PPI for your discomfort, this may be helpful if you are having heartburn/reflux. Take once daily. Your CT imaging today shows a small pulmonary nodule on the right and it is recommended that you have repeat/follow up CT of the chest at in 6-12 months to re-evaluate and make sure it is no growing or changing. It is also noted that you have some thickening of the distal esophagus. Return to ER for new or worsening symptoms, lightheadedness, passing out, new shortness of breath, chest pain or pressure, persistent vomiting or other new or concerning changes. Prescriptions: New famotidine [Pepcid] 40 mg tablet 40 mg PO DAILY Qty: 30 RF: 0
[2020-04-19 09:51] LABS: INR 1.1 (0.9-1.3); Prothrombin Time 12.3 SECONDS (10.1-12.7)
[2020-04-19 09:54] LABS: PTT Partial Thromboplastin Tim 36 SECONDS (26.4-36.2)
[2020-04-19 09:58] LABS: Alanine Aminotransferase 38 IU/L (<50); Albumin 4.6 g/dL (3.5-5.0); Albumin Globulin Ratio 1.4 (1.0-2.8); Alkaline Phosphatase 111 U/L (38-126); Aspartate Aminotransferase 31 IU/L (17-59); Bilirubin Total 1.1 mg/dL (0.2-1.3); Blood Urea Nitrogen 13 mg/dL (9-20); Calcium 9.3 mg/dL (8.4-10.2); Carbon Dioxide 27 mmol/L (22-32); Chloride 103 mmol/L (98-107); Creatine Kinase 60 U/L (55-170); Estimated Glomerular Filt Rate > 60.0 mL/min (>60); Globulin 3.4 g/dL (1.7-4.1); Glucose 125 mg/dL (70-100); HEMOLYSIS < 15 (0-50); Lipase 81 U/L (23-300); Potassium 3.4 mmol/L (3.4-5.1); Sodium 138 mmol/L (137-145)
[2020-04-19] MEDS: SODIUM CHLORIDE 0.9% 1,000 ML 1000 ML IV (10:00)
[2020-04-19 10:09] LABS: Troponin I < 0.012 ng/mL (0.01-0.034)
[2020-04-19 10:28] LABS: D Dimer 723 ng/mL (<230)
--- NOTE | 2020-04-19 10:31 | DI.CT.S_ITS ---
PROCEDURE: CT ANGIO CHEST PE PROTOCOL INDICATIONS: chest pain, elevated HR, + dimer TECHNIQUE: After the administration of intravenous contrast, 2 mm thick sections acquired from the pulmonary apices to the posterior costophrenic angles. 3-dimensional maximum intensity projection (MIP) coronal and sagittal reformats were then acquired through the thorax. For radiation dose reduction, the following was used: automated exposure control, adjustment of mA and/or kV according to patient size. COMPARISON: [facility], CT, CT ABDOMEN PELVIS W CON, 01/30/2019, 11:46. [facility], CT, CT ANGIO CHEST PE PROTOCOL, 01/09/2019, 12:03. FINDINGS: Image quality: Excellent. Pulmonary arteries: Pulmonary arteries are normal in size, and demonstrate no intraluminal filling defects to suggest central pulmonary embolism. Lungs and pleura: Lungs are clear of acute opacities. 7 millimeter subpleural nodule noted in the lateral periphery of the right lung base (series 6, image 195) is not significantly changed compared to prior CT scan. No pleural effusions or pneumothorax. Central and peripheral airways are patent. Mediastinum: Heart size is normal, without pericardial effusion. No mediastinal or hilar adenopathy. Thoracic aorta is normal in caliber and enhancement. Esophagus is normal in caliber, without hiatal hernia. Bones and chest wall: No suspicious bony lesions. Ribs and thoracic spine appear intact throughout. Thyroid gland is within normal limits where visualized. No axillary or supraclavicular adenopathy. Abdomen: Small hiatal hernia. Circumferential wall thickening involving the distal esophagus is stable compared to prior CT scan. Gallbladder is surgically absent. Visualized upper abdominal solid organs appear normal in the early arterial phase of enhancement. IMPRESSION: 1. No pulmonary embolus. 2. No lung consolidation or pleural effusions. 3. Small hiatal hernia and circumferential wall thickening involving the distal esophagus stable compared to January 09, 2019. 4. 7 millimeter subpleural right lower lobe lung nodule stable compared to January 09, 2019. Recommend follow-up CT scan in 6-12 months if clinically indicated based on criteria outlined below. Fleischner Society criteria for SOLID lung nodule followup. Nodule size (mm)Low-risk patientHigh-risk patient<6 (single or multiple)No routine followup.Optional CT at 12 months. 6-8 (single or multiple)CT at 6-12 months, then optional CT at 18-24 mo.CT at 6-12 months, then CT at 18-24 months. >8 (single)CT at 3 months, PET-CT, or biopsy. Same as for low-risk pts. >8 (multiple)CT at 3-6 months, then optional CT at 18-24 mo.CT at 3-6 months, then CT at 18-24 months. Recommendations do not apply to lung cancer screening, patients with immunosuppression, or patients with known primary cancer. Dictated by: Skylar Navarrete MD, PhD on 04/19/2020 at 9:59 Approved by: Skylar Navarrete MD, PhD on 04/19/2020 at 10:06
[2020-04-19 10:47] LABS: COVID19 -Nasal RAPID Negative (Negative)
[2020-04-19] MEDS: MAG HYDROX/ALUMINUM/SIMETH SUS 20 ML, LIDOCAINE VISCOUS 2% 15 ML PO (11:45)
[2020-04-19 12:04] LABS: Reflexed Lactate in 2 Hours Y
--- NOTE | 2020-04-25 08:34 | PC.NURSE ---
Late entry: The IV NS bolus begun at 1000 hrs completed infusing at 1100 hrs.
== END 2020-04-19 12:25 | disposition home or self-care (01) ==
PROVIDERS: Emergency Provider Emergency Medicine
DX: R07.9 Chest pain, unspecified (principal); E86.0 Dehydration; I10 Essential (primary) hypertension; R50.9 Fever, unspecified; E66.9 Obesity, unspecified; Z68.41 Body mass index [BMI] 40.0-44.9, adult; Z20.822 Contact with and (suspected) exposure to COVID-19
CPT/HCPCS: 36415; 71045; 71275; 80053; 82550; 83605; 83690; 84484; 85025; 85379; 85610; 85730; 87040; 87635; 93005; 93010; 96360; 99283; 99284; C9803

== ENCOUNTER → 2020-06-13 15:11 | Outpatient (CLI) | payer OTHER, SELFPAY ==
[2020-06-13] MEDS: COVID-19 VACC, Ad26(JANSSEN)/PF 0.5 ML IM (15:28)
== END ==
PROVIDERS: Visit Provider Internal Medicine
DX: Z23 Encounter for immunization (principal)
CPT/HCPCS: 0031A; 91303

== ENCOUNTER → 2020-07-18 08:03 | Outpatient (CLI) | payer OTHER, SELFPAY ==
[2020-07-18 08:20] LABS: Add Manual Diff / Slide Review NO; Basophils Absolute Auto 100 /uL (0-100); Basophils Percent Auto 0.8 % (0-2); Eosinophils Absolute Auto 200 /uL (0-450); Eosinophils Percent Auto 2.3 % (2-4); Hematocrit 46.2 % (41-53); Hemoglobin 15.9 g/dL (13.5-17.5); Lymphocytes Absolute Auto 2500 /uL (1100-4500); Lymphocytes Percent Auto 33.7 % (25-40); Mean Corpuscular HGB Conc 34.4 % (30-36); Mean Corpuscular Hemoglobin 30.2 PG (26-34); Mean Corpuscular Volume 87.8 fL (80-100); Monocytes Absolute Auto 600 /uL (0-900); Monocytes Percent Auto 7.8 % (3-14); Neutrophils Absolute Auto 4100 /uL (1500-7000); Neutrophils Percent Auto 55.4 % (50-75); Platelet Count 250 X10^3/uL (150-400); Red Blood Cell Count 5.26 X10^6/uL (4.5-5.9); Red Cell Distribution Width 13.1 % (11.6-14.8); White Blood Cell Count 7.4 X10^3/uL (4.5-11.0)
[2020-07-18 08:30] LABS: Lactate (Lactic Acid) 0.8 mmol/L (0.7-2.1)
== END ==
PROVIDERS: PCP Family Medicine; Referring Provider Student in an Organized Health Care Education/Training Program; Visit Provider Student in an Organized Health Care Education/Training Program
DX: L02.415 Cutaneous abscess of right lower limb (principal); L03.115 Cellulitis of right lower limb
CPT/HCPCS: 36415; 83605; 85025

== ENCOUNTER 2022-06-18 01:17 | Observation (INO) | payer OTHER, SELFPAY ==
[2022-06-18] VITALS (41 sets, daily range): BP systolic 136–189; BP diastolic 81–108; PULSE 82–129; RESP 9–40; TEMP 36.6–37.1; O2SAT 92–99; BMI 43.2
--- NOTE | 2022-06-18 01:43 | DI.RAD.S_ITS ---
PROCEDURE: XR CHEST 1V INDICATIONS: chest pain TECHNIQUE: One view of the chest was acquired. COMPARISON: [facility], CR, XR CHEST 1V, 04/19/2020, 9:31. FINDINGS: Surgical changes and devices: None. Lungs and pleura: Lungs are clear. No pleural effusions or pneumothorax. Mediastinum: Mediastinal contours appear normal. Heart size is normal. Bones and chest wall: No suspicious bony lesions. Overlying soft tissues appear unremarkable. IMPRESSION: 1. No acute cardiopulmonary disease. Dictated by: Luis Mckinley M.D. on 06/18/2022 at 2:16 Approved by: Luis Mckinley M.D. on 06/18/2022 at 2:17
[2022-06-18 01:53] LABS: INR 1.1 (0.9-1.3); Prothrombin Time 12.8 SECONDS (10.1-12.7)
[2022-06-18 01:55] LABS: Add Manual Diff / Slide Review NO; Basophils Absolute Auto 0 /uL (0-100); Basophils Percent Auto 0.5 % (0-2); Eosinophils Absolute Auto 100 /uL (0-450); Eosinophils Percent Auto 1.3 % (2-4); Hematocrit 46.7 % (41-53); Hemoglobin 15.8 g/dL (13.5-17.5); Lymphocytes Absolute Auto 3400 /uL (1100-4500); Lymphocytes Percent Auto 35.1 % (25-40); Mean Corpuscular HGB Conc 33.8 % (30-36); Mean Corpuscular Hemoglobin 29.5 PG (26-34); Mean Corpuscular Volume 87.3 fL (80-100); Monocytes Absolute Auto 800 /uL (0-900); Monocytes Percent Auto 8.2 % (3-14); Neutrophils Absolute Auto 5300 /uL (1500-7000); Neutrophils Percent Auto 54.9 % (50-75); Platelet Count 277 X10^3/uL (150-400); Red Blood Cell Count 5.35 X10^6/uL (4.5-5.9); Red Cell Distribution Width 13.3 % (11.6-14.8); White Blood Cell Count 9.7 X10^3/uL (4.5-11.0)
[2022-06-18 01:56] LABS: PTT Partial Thromboplastin Tim 36 SECONDS (26-36)
[2022-06-18 01:57] LABS: Alanine Aminotransferase 39 IU/L (<50); Albumin 4.2 g/dL (3.5-5.0); Albumin Globulin Ratio 1.1 (1.0-2.8); Alkaline Phosphatase 114 U/L (38-126); Aspartate Aminotransferase 28 IU/L (17-59); BUN Creatinine Ratio 11.9 (6-22); Blood Urea Nitrogen 10 mg/dL (9-20); Calcium 8.8 mg/dL (8.4-10.2); Carbon Dioxide 23 mmol/L (22-32); Chloride 101 mmol/L (98-107); Creatine Kinase 64 U/L (55-170); Estimated Glomerular Filt Rate > 60 mL/min (>60); Globulin 3.8 g/dL (1.7-4.1); Glucose 107 mg/dL (70-100); HEMOLYSIS 16 (0-50); Lipase 178 U/L (23-300); Magnesium 1.8 mg/dL (1.6-2.3); Sodium 136 mmol/L (137-145)
[2022-06-18 02:00] LABS: Potassium 3.5 mmol/L (3.4-5.1)
[2022-06-18 02:09] LABS: Troponin I < 0.012 ng/mL (0.01-0.034)
[2022-06-18] MEDS: ASPIRIN 81 MG CHEW TAB 324 MG PO (03:23)
--- NOTE | 2022-06-18 03:34 | ED_ITS ---
HPI - Chest Pain General Chief Complaint: Chest Pain Stated Complaint: chest pain, bp 190/110 Time Seen by Provider: 06/18/22 01:38 Source: patient Mode of arrival: Ambulatory Limitations: no limitations History of Present Illness HPI narrative: 46-year-old male nonsmoker with no chronic medical history presents for evaluation of left-sided chest pain that has been rather persistent over the course of the evening. He states that he was sitting at his desk working at a computer when it started out of nowhere. He denies obvious provocation or palliation. He denies any radiation. He denies any exertional symptoms nor cardiac equivalent such as dizziness, weakness or lightheadedness. He has no shortness of breath or cough. Denies recent travel, history of blood clot or cancer. Denies any cardiac history. He denies any exercise intolerance over the past few days or weeks. He denies lower extremity pain or swelling. He states he is had GERD in the past and this feels different Related Data Home Medications Medication Instructions Recorded Confirmed No Known Home Medications 06/18/22 06/18/22 Allergies Allergy/AdvReac Type Severity Reaction Status Date / Time No Known Drug Allergies Allergy Verified 07/18/20 07:22 Review of Systems Review of Systems Narrative: GENERAL: Denies chills, fatigue, malaise, fever, sweats. HEENT: Denies sinus pain, ear pain, sore throat, difficulty swallowing, di zziness. RESPIRATORY: Denies dyspnea, cough, wheezing, hemoptysis, sputum. CARDIOVASCULAR: See HPI GASTROINTESTINAL: Denies nausea, vomiting, abdominal pain, diarrhea, constipation, melena. : Denies dysuria, frequency, incontinence, hematuria, urinary retention. MUSCULOSKELETAL: denies weakness, joint pain, or bony pain SKIN: Denies rash, skin lesions, or other NEUROLOGIC: Denies weakness, headache, numbness, change in speech, confusion, seizures, incoordination. PSYCHIATRIC: No concerning psychosocial issues. 12 point review of systems is negative except for those stated above Patient History Medical History Biliary colic Gallstones Obesity Obesity (BMI 30-39.9) Tinnitus Surgical History Anesthesia History of cholecystectomy Status post cholecystectomy Family History Father Greenwood's chorea Mother No problems noted. Grandfather Diabetes mellitus History of heart disease Grandmother No problems noted. Grandfather No problems noted. Grandmother Sharla's chorea Social History household members: family Smoking Status: Never smoker alcohol intake: current substance use type: does not use Smoking Status: Never smoker alcohol intake frequency: holidays/special occasions only Substance Use Type: does not use Exam Narrative Exam Narrative: GENERAL: [46] year old patient appears stated age. Well-developed patient, in mild distress. HEAD: Atraumatic. Normocephalic. EYES: Pupils equal round and reactive. Extraocular motions intact. No scleral icterus. No injection or drainage. ENT: Nose without bleeding, purulent drainage. Throat without erythema, tonsillar hypertrophy or exudate. Airway patent. NECK: Trachea midline. Non tender CARDIOVASCULAR: Regular rate and rhythm without murmurs, gallops, or rubs. RESPIRATORY: Clear to auscultation. Breath sounds equal bilaterally. No wheezes, rales, or rhonchi. GASTROINTESTINAL: Abdomen soft, non-tender, nondistended. EXTREMITIES: No edema or joint tenderness. BACK: Nontender without deformity or crepitance. No flank tenderness. NEURO: AOx3. SKIN: No rash or erythema of visible areas Initial Vital Signs Initial Vital Signs: Vital Signs Temperature 98.6 F 06/18/22 01:25 Pulse Rate 129 H 06/18/22 01:25 Respiratory Rate 16 06/18/22 01:25 Blood Pressure 189/106 H 06/18/22 01:25 Pulse Oximetry 97 06/18/22 01:25 Oxygen Delivery Method Room Air 06/18/22 01:25 Scores HEART Score Heart Score history: Highly Suspicious Heart Score EKG: Normal Heart Score Age: 45-64 years old Heart Score risk factors: 1-2 risk factors Course Orders Ordered: Discontinued Medications Acetaminophen (Acetaminophen 325 Mg Tablet) 650 mg PO Q6H PRN PRN Reason: Fever/Mild Pain (1-3) Aspirin (Aspirin 81 Mg Chew Tab) 324 mg PO NOW ONE Stop: 06/18/22 01:44 Last Admin: 06/18/22 03:23 Dose: 324 mg Documented By: ELIZABETH Aspirin (Aspirin Ec 81 Mg Tablet) 81 mg PO DAILY [facility] Last Admin: 06/18/22 08:10 Dose: 81 mg Documented By: BISHOP Atorvastatin Calcium (Atorvastatin 20 Mg Tablet) 40 mg PO BEDTIME [facility] Enoxaparin Sodium (Enoxaparin 40 Mg/0.4 Ml Syringe) 40 mg SUBCUT DAILY [facility] Last Admin: 06/18/22 08:10 Dose: 40 mg Documented By: BISHOP Enoxaparin Sodium (Enoxaparin 40 Mg/0.4 Ml Syringe) 40 mg SUBCUT BID [facility] Naloxone HCl (Naloxone 0.4 Mg/Ml Vial) 0.2 mg IV Q2MIN PRN PRN Reason: Opiate Reversal Nitroglycerin (Nitroglycerin 0.4 Mg Sl Tab) 0.4 mg SL [id number] PRN PRN Reason: Chest Pain Last Admin: 06/18/22 03:56 Dose: 0.4 mg Documented By: ELIZABETH Sodium Chloride (Sodium Chloride 0.9% Flush) 10 ml IV PRN PRN PRN Reason: Flush Sodium Chloride (Sodium Chloride 0.9% Flush) 10 ml IV BID [facility] Last Admin: 06/18/22 11:18 Dose: Not Given Documented By: BISHOP Reevaluation(s) Reevaluation #1: Patient blood pressure now down from the 180s into the 140s and there is little if any change in his symptoms Reevaluation #2: pain resolved after NG Vital Signs Vital signs: Vital Signs - 8 hr 06/18/22 01:25 06/18/22 01:34 06/18/22 01:34 Temperature 98.6 F Pulse Rate 129 H 107 H Respiratory Rate 16 18 Blood Pressure 189/106 H 173/92 H Pulse Oximetry 97 94 Oxygen Delivery Method Room Air 06/18/22 02:00 06/18/22 02:00 06/18/22 03:56 Temperature Pulse Rate 98 H 90 Respiratory Rate 24 Blood Pressure 148/89 H 168/103 H Pulse Oximetry 94 Oxygen Delivery Method MDM - Chest Pain Lab Data 06/18/22 01:35 06/18/22 01:35 Labs: Lab Results 06/18/22 06/18/22 06/18/22 Range/Units 01:35 01:35 01:35 WBC 9.7 (4.5-11.0) X10^3/uL RBC 5.35 (4.5-5.9) X10^6/uL Hgb 15.8 (13.5-17.5) g/dL Hct 46.7 (41-53) % MCV 87.3 (80-100) fL MCH 29.5 (26-34) PG MCHC 33.8 (30-36) % RDW 13.3 (11.6-14.8) % Plt Count 277 (150-400) X10^3/uL Neut % (Auto) 54.9 (50-75) % Lymph % (Auto) 35.1 (25-40) % [place] % (Auto) 8.2 (3-14) % Eos % (Auto) 1.3 L (2-4) % Baso % (Auto) 0.5 (0-2) % Neut # (Auto) 5300 (2447-4606) /uL Lymph # (Auto) 3400 (3518-1746) /uL [place] # (Auto) 800 (0-900) /uL Eos # (Auto) 100 (0-450) /uL Baso # (Auto) 0 (0-100) /uL ESR (0-15) MM/HR PT 12.8 H (10.1-12.7) SECONDS INR 1.1 (0.9-1.3) APTT 36 (26-36) SECONDS D-Dimer (<500) ng/ml Sodium 136 L (137-145) mmol/L Potassium 3.5 (3.4-5.1) mmol/L Chloride 101 (98-107) mmol/L Carbon Dioxide 23 (22-32) mmol/L BUN 10 (9-20) mg/dL Creatinine 0.84 (0.66-1.25) mg/dL Estimated GFR > 60 (>60) mL/min BUN/Creatinine Ratio 11.9 (6-22) Glucose 107 H (70-100) mg/dL Calcium 8.8 (8.4-10.2) mg/dL Magnesium 1.8 (1.6-2.3) mg/dL Total Bilirubin 1.0 (0.2-1.3) mg/dL AST 28 (17-59) IU/L ALT 39 (<50) IU/L Alkaline Phosphatase 114 (38-126) U/L Total Creatine Kinase 64 (55-170) U/L CK-MB (CK-2) TNP CK-MB (CK-2) Rel Index TNP Troponin I < 0.012 (0.01-0.034) ng/mL C-Reactive Protein (<1.0) mg/dL Total Protein 8.0 (6.3-8.2) g/dL Albumin 4.2 (3.5-5.0) g/dL Globulin 3.8 (1.7-4.1) g/dL Albumin/Globulin Ratio 1.1 (1.0-2.8) Lipase 178 (23-300) U/L SARS-CoV-2 (PCR) (Negative) 06/18/22 06/18/22 06/18/22 Range/Units 01:35 01:35 01:35 WBC (4.5-11.0) X10^3/uL RBC (4.5-5.9) X10^6/uL Hgb (13.5-17.5) g/dL Hct (41-53) % MCV (80-100) fL MCH (26-34) PG MCHC (30-36) % RDW (11.6-14.8) % Plt Count (150-400) X10^3/uL Neut % (Auto) (50-75) % Lymph % (Auto) (25-40) % [place] % (Auto) (3-14) % Eos % (Auto) (2-4) % Baso % (Auto) (0-2) % Neut # (Auto) (2265-2539) /uL Lymph # (Auto) (6056-4596) /uL [place] # (Auto) (0-900) /uL Eos # (Auto) (0-450) /uL Baso # (Auto) (0-100) /uL ESR 3 (0-15) MM/HR PT (10.1-12.7) SECONDS INR (0.9-1.3) APTT (26-36) SECONDS D-Dimer 215 (<500) ng/ml Sodium (137-145) mmol/L Potassium (3.4-5.1) mmol/L Chloride (98-107) mmol/L Carbon Dioxide (22-32) mmol/L BUN (9-20) mg/dL Creatinine (0.66-1.25) mg/dL Estimated GFR (>60) mL/min BUN/Creatinine Ratio (6-22) Glucose (70-100) mg/dL Calcium (8.4-10.2) mg/dL Magnesium (1.6-2.3) mg/dL Total Bilirubin (0.2-1.3) mg/dL AST (17-59) IU/L ALT (<50) IU/L Alkaline Phosphatase (38-126) U/L Total Creatine Kinase (55-170) U/L CK-MB (CK-2) CK-MB (CK-2) Rel Index Troponin I (0.01-0.034) ng/mL C-Reactive Protein 1.3 H (<1.0) mg/dL Total Protein (6.3-8.2) g/dL Albumin (3.5-5.0) g/dL Globulin (1.7-4.1) g/dL Albumin/Globulin Ratio (1.0-2.8) Lipase (23-300) U/L SARS-CoV-2 (PCR) (Negative) 06/18/22 06/18/22 Range/Units 03:24 04:39 WBC (4.5-11.0) X10^3/uL RBC (4.5-5.9) X10^6/uL Hgb (13.5-17.5) g/dL Hct (41-53) % MCV (80-100) fL MCH (26-34) PG MCHC (30-36) % RDW (11.6-14.8) % Plt Count (150-400) X10^3/uL Neut % (Auto) (50-75) % Lymph % (Auto) (25-40) % [place] % (Auto) (3-14) % Eos % (Auto) (2-4) % Baso % (Auto) (0-2) % Neut # (Auto) (3298-2918) /uL Lymph # (Auto) (1331-0806) /uL [place] # (Auto) (0-900) /uL Eos # (Auto) (0-450) /uL Baso # (Auto) (0-100) /uL ESR (0-15) MM/HR PT (10.1-12.7) SECONDS INR (0.9-1.3) APTT (26-36) SECONDS D-Dimer (<500) ng/ml Sodium (137-145) mmol/L Potassium (3.4-5.1) mmol/L Chloride (98-107) mmol/L Carbon Dioxide (22-32) mmol/L BUN (9-20) mg/dL Creatinine (0.66-1.25) mg/dL Estimated GFR (>60) mL/min BUN/Creatinine Ratio (6-22) Glucose (70-100) mg/dL Calcium (8.4-10.2) mg/dL Magnesium (1.6-2.3) mg/dL Total Bilirubin (0.2-1.3) mg/dL AST (17-59) IU/L ALT (<50) IU/L Alkaline Phosphatase (38-126) U/L Total Creatine Kinase (55-170) U/L CK-MB (CK-2) CK-MB (CK-2) Rel Index Troponin I < 0.012 (0.01-0.034) ng/mL C-Reactive Protein (<1.0) mg/dL Total Protein (6.3-8.2) g/dL Albumin (3.5-5.0) g/dL Globulin (1.7-4.1) g/dL Albumin/Globulin Ratio (1.0-2.8) Lipase (23-300) U/L SARS-CoV-2 (PCR) Negative (Negative) MDM Narrative Medical decision making narrative: CC: 46-year-old male with left-sided chest pain Complicating co-morbidities: BMI 43, GERD Data collected from: Patient Medical records reviewed: Prior notes reviewed in our EMR Differential considered, but not limited to: Cardiac ischemia, pulmonary embolism, pericarditis, musculoskeletal, the above nail versus other Exam documented above, pertinent findings include: Initially tachycardic but sl owed to the 90s over the course of the visit. No murmurs, clicks, rubs or gallops. Lungs clear and nonlabored. Abdomen is soft. No reproducible pain on palpation or use of left upper extremity Lab Test results independently reviewed as above. Pertinent findings: No leukocytosis or left shift, no evidence of anemia, troponin negative Independently reviewed EKG as above Imaging studies independently reviewed: CXR negative Scores Used: HEART 46-year-old male with concerning description of chest pressure that started at rest. Thankfully EKGs are nonischemic and troponin is negative. Blood pressure was initially high but resolved without intervention, chest pain did not improve with improvement in blood pressure there was near immediate improvement after patient was given nitro. Patient will require hospitalization for further evaluation with echo and stress test. Hospitalist happy to accept on his service Discharge Plan Departure Patient Disposition: Admitted As Inpatient Clinical Impression: Acute chest pain, Hypertension Admit Date/Time: 06/18/22 05:33 Admit Provider: Aaron Jeff
[2022-06-18 03:47] LABS: D Dimer 215 ng/ml (<500)
[2022-06-18 03:51] LABS: C-Reactive Protein Quant 1.3 mg/dL (<1.0)
[2022-06-18 03:55] LABS: Troponin I < 0.012 ng/mL (0.01-0.034)
[2022-06-18] MEDS: NITROGLYCERIN 0.4 MG SL TAB SL (03:56)
--- NOTE | 2022-06-18 04:00 | PC.NURSE ---
after sitting up on stretcher pt states pain is relieved, pt stated the asa eased the pain and the NTG relieved it completely
[2022-06-18 04:03] LABS: Erythrocyte Sedimentation Rate 3 MM/HR (0-15)
--- NOTE | 2022-06-18 05:01 | DI.NM.S_ITS ---
PROCEDURE: NM EXERCISE TREADMILL NON NUC COMPARISON: None INDICATIONS: Chest pain FINDINGS: Rest ECG sinus rhythm, nonspecific T wave abnormality. Davey protocol 6:07, maximum heart rate 181 bpm (104% peak predicted), maximum blood pressure 218/70, 7.0 METS, JAHAIRA +46%. Stress ECG sinus tachycardia, artifact precluding clear interpretation of ST segments. Early recovery ECG inferior T wave inversions. The patient did not complain of exercise-induced chest pain. IMPRESSION: Equivocal study. Exercise ECG unable to be interpreted due to artifact however early recovery ECG does show T wave inversions which are new compared to baseline. Accelerated heart rate and hypertensive responses to exercise. Markedly reduced exercise capacity. If clinically indicated, consider repeat stress testing with different modality to include imaging. Dictated by: Anna Romo D.O. on 06/18/2022 at 16:20 Approved by: Anna Romo D.O. on 06/18/2022 at 16:25
[2022-06-18 05:12] LABS: COVID19 -Nasal RAPID Negative (Negative)
--- NOTE | 2022-06-18 05:19 | P.HP_ITS ---
History of Present Illness History of Present Illness Date Patient Seen: 06/18/22 Time Patient Seen: 05:00 Chief complaint: chest pain, bp 190/110 Narrative: Mr. Whalen is a 46M with PMH morbid obesity who presents to the hospital with chest pain. He was at rest when he felt squeezing pressure like chest discomfort. It radiated to the shoulder. He had no shortness of breath. He had no cough/fevers or chills. He is a nonsmoker. His grandfather had cardiac event at an elderly age. He has had reflux before and this does not feel like that. In the ED workup was done, vitals were notable for elevated blood pressure and tachycardia. Labs notable for WBC 9.7, hgb 15.8. Na 136, creatinine 0.84. Troponin negative x2. He was given nitro and felt improved. EKG showed late R- wave progression, and sinus rhythm. Chest xray showed no acute process. He was given aspirin and was admitted for further treatment. Patient History Medical History Biliary colic Gallstones Obesity Obesity (BMI 30-39.9) Tinnitus Surgical History Anesthesia History of cholecystectomy Status post cholecystectomy Family & Social History Family History Father [place]'s chorea Mother No problems noted. Grandfather Diabetes mellitus History of heart disease Grandmother No problems noted. Grandfather No problems noted. Grandmother Desoto's chorea Social History: household members family Safety & Behavioral: Feels Safe in Current Yes Environment Tobacco & Substance use: Smoking Status Never smoker alcohol intake current alcohol intake frequency holiday/special occasion Substance Use Type does not use Meds Home Medications and Allergies Home Medications Medication Instructions Recorded Confirmed Type famotidine 40 mg tablet (Pepcid) 40 mg PO DAILY #30 tabs 04/19/20 07/18/20 Rx Allergies Allergy/AdvReac Type Severity Reaction Status Date / Time No Known Drug Allergies Allergy Verified 07/18/20 07:22 Review of Systems Review of Systems Narrative: 14 systems reviewed and negative aside from what is noted in HPI Exam Vital Signs (past 8 hours): - 06/18/22 01:25 06/18/22 01:34 06/18/22 01:34 Temperature 98.6 F Pulse Rate 129 H 107 H Respiratory Rate 16 18 Blood Pressure 189/106 H 173/92 H Pulse Oximetry 97 94 Oxygen Delivery Method Room Air 06/18/22 02:00 06/18/22 02:00 06/18/22 03:56 Temperature Pulse Rate 98 H 90 Respiratory Rate 24 Blood Pressure 148/89 H 168/103 H Pulse Oximetry 94 Oxygen Delivery Method 06/18/22 02:30 06/18/22 02:30 06/18/22 03:00 Temperature Pulse Rate 95 H Respiratory Rate 20 Blood Pressure 141/83 H 153/88 H Pulse Oximetry 92 Oxygen Delivery Method 06/18/22 03:00 06/18/22 03:30 06/18/22 03:30 Temperature Pulse Rate 101 H 97 H Respiratory Rate 20 26 H Blood Pressure 164/92 H Pulse Oximetry 94 96 Oxygen Delivery Method 06/18/22 03:55 06/18/22 03:55 06/18/22 04:00 Temperature Pulse Rate 93 H Respiratory Rate 20 Blood Pressure 168/103 H 154/83 H Pulse Oximetry 96 Oxygen Delivery Method 06/18/22 04:00 06/18/22 04:05 06/18/22 04:05 Temperature Pulse Rate 111 H 103 H Respiratory Rate 24 22 Blood Pressure 150/81 H Pulse Oximetry 94 95 Oxygen Delivery Method 06/18/22 04:10 06/18/22 04:10 06/18/22 04:15 Temperature Pulse Rate 97 H Respiratory Rate 26 H Blood Pressure 149/84 H 160/91 H Pulse Oximetry 96 Oxygen Delivery Method 06/18/22 04:15 06/18/22 04:20 06/18/22 04:20 Temperature Pulse Rate 102 H 97 H Respiratory Rate 24 25 H Blood Pressure 147/85 H Pulse Oximetry 96 96 Oxygen Delivery Method 06/18/22 04:25 06/18/22 04:25 06/18/22 04:30 Temperature Pulse Rate 95 H Respiratory Rate 19 Blood Pressure 143/85 H 142/85 H Pulse Oximetry 96 Oxygen Delivery Method 06/18/22 04:30 06/18/22 04:35 06/18/22 04:35 Temperature Pulse Rate 94 H 92 H Respiratory Rate 18 9 L Blood Pressure 137/88 Pulse Oximetry 96 95 Oxygen Delivery Method 06/18/22 04:40 06/18/22 04:40 06/18/22 04:45 Temperature Pulse Rate 95 H 93 H Respiratory Rate 20 15 Blood Pressure 147/85 H Pulse Oximetry 96 96 Oxygen Delivery Method 06/18/22 04:45 06/18/22 04:50 06/18/22 04:50 Temperature Pulse Rate 95 H Respiratory Rate 20 Blood Pressure 136/85 148/86 H Pulse Oximetry 96 Oxygen Delivery Method 06/18/22 04:55 06/18/22 04:55 06/18/22 05:00 Temperature Pulse Rate 89 Respiratory Rate 21 Blood Pressure 144/86 H 141/85 H Pulse Oximetry 94 Oxygen Delivery Method 06/18/22 05:00 06/18/22 05:05 06/18/22 05:05 Temperature Pulse Rate 91 H 90 Respiratory Rate 17 20 Blood Pressure 144/87 H Pulse Oximetry 95 95 Oxygen Delivery Method 06/18/22 05:10 06/18/22 05:10 Temperature Pulse Rate 104 H Respiratory Rate Blood Pressure 152/95 H Pulse Oximetry 96 Oxygen Delivery Method Oxygen Delivery Method Room Air Narrative Exam Narrative: GEN: no acute distress HEENT: moist mucous membranes, PERRL NECK: trachea midline, no jvd PULM: clear bilaterally, no wheezes, rhonchi, rales CV: tachycardic, no murmurs ABD: soft, nontender, nondistended, no organomegly, normal bowel sounds EXT: warm and well perfused with no edema NEURO: awake, alert, oriented, no focal deficits Objective Labs 06/18/22 01:35 06/18/22 01:35 Labs: Laboratory Results - last 24 hr 06/18/22 06/18/22 06/18/22 01:35 01:35 01:35 WBC 9.7 RBC 5.35 Hgb 15.8 Hct 46.7 MCV 87.3 MCH 29.5 MCHC 33.8 RDW 13.3 Plt Count 277 Neut % (Auto) 54.9 Lymph % (Auto) 35.1 [place] % (Auto) 8.2 Eos % (Auto) 1.3 L Baso % (Auto) 0.5 Neut # (Auto) 5300 Lymph # (Auto) 3400 [place] # (Auto) 800 Eos # (Auto) 100 Baso # (Auto) 0 ESR PT 12.8 H INR 1.1 APTT 36 D-Dimer Sodium 136 L Potassium 3.5 Chloride 101 Carbon Dioxide 23 BUN 10 Creatinine 0.84 Estimated GFR > 60 BUN/Creatinine Ratio 11.9 Glucose 107 H Calcium 8.8 Magnesium 1.8 Total Bilirubin 1.0 AST 28 ALT 39 Alkaline Phosphatase 114 Total Creatine Kinase 64 CK-MB (CK-2) TNP CK-MB (CK-2) Rel Index TNP Troponin I < 0.012 C-Reactive Protein Total Protein 8.0 Albumin 4.2 Globulin 3.8 Albumin/Globulin Ratio 1.1 Lipase 178 SARS-CoV-2 (PCR) 06/18/22 06/18/22 06/18/22 01:35 01:35 01:35 WBC RBC Hgb Hct MCV MCH MCHC RDW Plt Count Neut % (Auto) Lymph % (Auto) [place] % (Auto) Eos % (Auto) Baso % (Auto) Neut # (Auto) Lymph # (Auto) [place] # (Auto) Eos # (Auto) Baso # (Auto) ESR 3 PT INR APTT D-Dimer 215 Sodium Potassium Chloride Carbon Dioxide BUN Creatinine Estimated GFR BUN/Creatinine Ratio Glucose Calcium Magnesium Total Bilirubin AST ALT Alkaline Phosphatase Total Creatine Kinase CK-MB (CK-2) CK-MB (CK-2) Rel Index Troponin I C-Reactive Protein 1.3 H Total Protein Albumin Globulin Albumin/Globulin Ratio Lipase SARS-CoV-2 (PCR) 06/18/22 06/18/22 03:24 04:39 WBC RBC Hgb Hct MCV MCH MCHC RDW Plt Count Neut % (Auto) Lymph % (Auto) [place] % (Auto) Eos % (Auto) Baso % (Auto) Neut # (Auto) Lymph # (Auto) [place] # (Auto) Eos # (Auto) Baso # (Auto) ESR PT INR APTT D-Dimer Sodium Potassium Chloride Carbon Dioxide BUN Creatinine Estimated GFR BUN/Creatinine Ratio Glucose Calcium Magnesium Total Bilirubin AST ALT Alkaline Phosphatase Total Creatine Kinase CK-MB (CK-2) CK-MB (CK-2) Rel Index Troponin I < 0.012 C-Reactive Protein Total Protein Albumin Globulin Albumin/Globulin Ratio Lipase SARS-CoV-2 (PCR) Negative Assessment & Plan Assessment & Plan narrative: 1. Acute chest pain -story worrisome with acute chest pain at rest with resolution with nitro -d-dimer low at 215, unlikely a PE, no indication for CTA -EKG with no acute process -troponin negative x2, check third troponin -ordered for aspirin statin -plan for exercise stress test 2. Elevated blood pressure -initially presented with systolic in the 190s -improved without treatment to the 140s -continue to monitor, no indication for starting meds for now I have discussed the plan with the patient. I have discussed plan of care with ED physician and bedside nurse. I have reviewed labs, chest xray, EKG. CODE: Full Proxy: Paula Whalen, mother Time Spent With Patient Critical Care time: I spent a total of [] minutes of critical care time on this patient's care today; this time is exclusive of procedural time. Quality MIPS - Meds 'Current medications' to include all prescriptions, [id number] products, herbals, cannabis/cannabidiol products, and vitamin/mineral/dietary (nutritional) supplements. I have utilized all available resources to obtain, update, or review the reena ent?s current medications. [If Yes, STOP here]: Yes
[2022-06-18] MEDS: ASPIRIN EC 81 MG TABLET PO (08:10)
[2022-06-18] MEDS: ENOXAPARIN 40 MG/0.4 ML SYRINGE SUBCUT (08:10)
--- NOTE | 2022-06-18 08:46 | CM.DANOTE ---
Addendum entered by Jessica Turk R.N. 06/18/22 09:18: Patient's provider is Dr. Lantigua, accidentally stated that it was Patrica Daly, which is it not. Original Note: DCP: Case received, EMR reviewed and met with patient. Introduced self and role. Was able to obtain information in order to complete assessment. DCP assessment completed with information currently available. Patient is a 46 year old male who admitted early this morning to the care of the hospitalist team. PCP: Dr. Patrica Alvarez Payer: confirmed: [facility]. Patient came to the hospital via private vehicle secondary to having left-sided chest pain that was persistent over the course of the evening. Patient indicated, he felt squeezing pressure in his chest. Patient is diagnosed with acute chest pain, HTN. Patient will have a stress test today. Met with patient in his room. Patient was laying in bed, alert and oriented. Confirmed that he resides here in [place] with his brother, Yaakov. He is independent at his baseline, and is employed at [employer]. P: DCP to continue to follow. Patient should be able to go home when deemed medically stable. Jessica Turk RN/Script Reader Discharge Planning/Care Management CM Discharge Assessment Start: 06/18/22 08:45 Freq: Status: Active Protocol: Document 06/18/22 08:45 (Rec: 06/18/22 08:46 [id number]) Discharge Planning Assessment Assigned Flight Operations Dispatch Clerk Jessica Turk RN/Script Reader Advance Directives? No History Provided By Patient,Medical Record Prior Living Arrangements Apartment/Condo Household Members family Comment Patient resides with his brother Type of transporation used prior to Drives own vehicle admit Independent with ADL's Yes Is patient alert and oriented? Yes Caregiver for Another No Barriers to Discharge No Discharge Plan Home Transportation Arrangement Family Referrals Initiated None needed Whiteboard Updated in Patient Room with Yes name and ext. # of Flight Operations Dispatch Clerk Review Status In Process Next Review Type Continued Stay Review
[2022-06-18 09:38] LABS: Troponin I < 0.012 ng/mL (0.01-0.034)
--- NOTE | 2022-06-18 16:06 | PM.DS.1 ---
History of Present Illness History of Present Illness Date Patient Seen: 06/18/22 Time Patient Seen: 16:06 Chief complaint: chest pain, bp 190/110 Narrative: Per admitting provider, Mr. Whalen is a 46M with PMH morbid obesity who presents to the hospital with chest pain. He was at rest when he felt squeezing pressure like chest discomfort. It radiated to the shoulder. He had no shortness of breath. He had no cough/fevers or chills. He is a nonsmoker. His grandfather had cardiac event at an elderly age. He has had reflux before and this does not feel like that. In the ED workup was done, vitals were notable for elevated blood pressure and tachycardia. Labs notable for WBC 9.7, hgb 15.8. Na 136, creatinine 0.84. Troponin negative x2. He was given nitro and felt improved. EKG showed late R-wave progression, and sinus rhythm. Chest xray showed no acute process. He was given aspirin and was admitted for further treatment. Discharge Providers Provider Date of admission: 06/18/22 05:33 Discharge Date: 06/18/22 Primary care physician: Cedric Lantigua DO Discharge provider: Edwin Olmos DO Summary Hospital Course Discharge Diagnosis: 1. Acute chest pain 2. Elevated blood pressure 3. Obesity Hospital Course: This is a 46 year old male with PMH of obesity who was admitted for further risk stratification of chest pain. His chest pain resolved and did not recur after aspirin and nitroglycerin given in the ER. Patient had an EKG treadmill, which was unfortunately inconclusive. CTA was negative for PE. Troponins were negative and as noted above chest pain did not recur. ACS was ruled out, but did discuss with cardiology whom did think that further evaluation was warranted with nuclear stress testing given inconclusive treadmill study, which could be done now or could be deferred to the outpatient setting given resolution of symptoms and negative troponins. Discussed with patient risks and benefits of continued observation here with nuclear testing to be done the following day, or discharge home with plan for PCP follow up and referral for nuclear testing as an outpatient. Patient elected for discharge home. He was instructed to contact his PCP office as soon as possible for further evaluation. The patient is at much higher risk for medical and surgical complications because of his obesity. This increases the difficulty and complexity of medical and surgical interventions and increases the chances of poor outcomes such as morbidity and mortality. He had both elevated and normal BP here over the course of his stay. Patient was recommended to obtain BP cuff at home for continued home monitoring, and if persistently elevated consider antihypertensive medications with primary care provider. Time Spent with Patient Time spent: Greater than 30 minutes Exam Vital Signs (past 8 hours): - 06/18/22 08:19 06/18/22 08:39 06/18/22 12:00 Temperature 98.1 F 98.8 F Pulse Rate 82 123 H Respiratory Rate 20 20 Blood Pressure 161/98 H 138/85 Pulse Oximetry 98 94 Oxygen Delivery Method Room Air Oxygen Flow Rate 0 0 06/18/22 15:50 Temperature 98.4 F Pulse Rate 96 H Respiratory Rate 20 Blood Pressure 147/93 H Pulse Oximetry 97 Oxygen Delivery Method Oxygen Flow Rate 0 Oxygen Delivery Method Room Air Oxygen Flow Rate 0 Narrative Exam Narrative: GEN: no acute distress HEENT: moist mucous membranes, PERRL NECK: trachea midline, no jvd EXT: warm and well perfused with no edema NEURO: awake, alert, oriented, no focal deficits Objective Labs 06/18/22 01:35 06/18/22 01:35 Labs: Laboratory Results - last 24 hr 06/18/22 06/18/22 06/18/22 01:35 01:35 01:35 WBC 9.7 RBC 5.35 Hgb 15.8 Hct 46.7 MCV 87.3 MCH 29.5 MCHC 33.8 RDW 13.3 Plt Count 277 Neut % (Auto) 54.9 Lymph % (Auto) 35.1 [place] % (Auto) 8.2 Eos % (Auto) 1.3 L Baso % (Auto) 0.5 Neut # (Auto) 5300 Lymph # (Auto) 3400 [place] # (Auto) 800 Eos # (Auto) 100 Baso # (Auto) 0 ESR PT 12.8 H INR 1.1 APTT 36 D-Dimer Sodium 136 L Potassium 3.5 Chloride 101 Carbon Dioxide 23 BUN 10 Creatinine 0.84 Estimated GFR > 60 BUN/Creatinine Ratio 11.9 Glucose 107 H Calcium 8.8 Magnesium 1.8 Total Bilirubin 1.0 AST 28 ALT 39 Alkaline Phosphatase 114 Total Creatine Kinase 64 CK-MB (CK-2) TNP CK-MB (CK-2) Rel Index TNP Troponin I < 0.012 C-Reactive Protein Total Protein 8.0 Albumin 4.2 Globulin 3.8 Albumin/Globulin Ratio 1.1 Lipase 178 SARS-CoV-2 (PCR) 06/18/22 06/18/22 06/18/22 01:35 01:35 01:35 WBC RBC Hgb Hct MCV MCH MCHC RDW Plt Count Neut % (Auto) Lymph % (Auto) [place] % (Auto) Eos % (Auto) Baso % (Auto) Neut # (Auto) Lymph # (Auto) [place] # (Auto) Eos # (Auto) Baso # (Auto) ESR 3 PT INR APTT D-Dimer 215 Sodium Potassium Chloride Carbon Dioxide BUN Creatinine Estimated GFR BUN/Creatinine Ratio Glucose Calcium Magnesium Total Bilirubin AST ALT Alkaline Phosphatase Total Creatine Kinase CK-MB (CK-2) CK-MB (CK-2) Rel Index Troponin I C-Reactive Protein 1.3 H Total Protein Albumin Globulin Albumin/Globulin Ratio Lipase SARS-CoV-2 (PCR) 06/18/22 06/18/22 06/18/22 03:24 04:39 09:02 WBC RBC Hgb Hct MCV MCH MCHC RDW Plt Count Neut % (Auto) Lymph % (Auto) [place] % (Auto) Eos % (Auto) Baso % (Auto) Neut # (Auto) Lymph # (Auto) [place] # (Auto) Eos # (Auto) Baso # (Auto) ESR PT INR APTT D-Dimer Sodium Potassium Chloride Carbon Dioxide BUN Creatinine Estimated GFR BUN/Creatinine Ratio Glucose Calcium Magnesium Total Bilirubin AST ALT Alkaline Phosphatase Total Creatine Kinase CK-MB (CK-2) CK-MB (CK-2) Rel Index Troponin I < 0.012 < 0.012 C-Reactive Protein Total Protein Albumin Globulin Albumin/Globulin Ratio Lipase SARS-CoV-2 (PCR) Negative [facility] Medical History Biliary colic Gallstones Obesity Obesity (BMI 30-39.9) Tinnitus Surgical History Anesthesia History of cholecystectomy Status post cholecystectomy Family History Father [place]'s chorea Mother No problems noted. Grandfather Diabetes mellitus History of heart disease Grandmother No problems noted. Grandfather No problems noted. Grandmother [place]'s chorea Social History household members: family Smoking Status: Never smoker alcohol intake: current substance use type: does not use Discharge Plan Discharge Plan Patient Disposition: Home Provider Discharge Comment: You were admitted to the hospital for further evaluation of chest pain. EKG stress testing was indeterminant, you elected for discharge at this time and follow up as an outpatient for further evaluation with nuclear study instead. I recommend obtaining a blood pressure cuff at home, check it once a day around the same time, after resting for about 5 minutes. Keep a log, because if routinely elevated you should be on a medication for elevated BP. Please bring this record to Dr. Lantigua, no medication changes are recommended at this time. Discharge orders & Medications Prescriptions: No Action No Known Home Medications Follow up/Referrals: Cedric Lantigua DO [Primary Care Provider] - 1 Week Diet/Activity/Treatments Diet: Diet as Tolerated Activity: As tolerated Visit Report/Discharge Packet Instructions: How to Monitor Your Blood Pressure at Home Stand Alone Forms: Patient Portal/API, Stroke Signs & Symptoms Discharge Data Primary Care Provider: Cedric Lantigua Attending Provider: Aaron Jeff VTE Deep Vein Thrombosis/Pulmonary Embolism Present on Admission: No
== END 2022-06-18 16:25 | disposition home or self-care (01) ==
LOC: ED 01:38 → AC 05:34
PROVIDERS: Admitting Provider Internal Medicine; Emergency Provider Emergency Medicine; PCP Family Medicine; Referring Provider Emergency Medicine; Visit Provider Internal Medicine
DX: R07.9 Chest pain, unspecified (principal); R03.0 Elevated blood-pressure reading, without diagnosis of hypertension; K21.9 Gastro-esophageal reflux disease without esophagitis; E66.01 Morbid (severe) obesity due to excess calories; Z68.41 Body mass index [BMI] 40.0-44.9, adult; Z20.822 Contact with and (suspected) exposure to COVID-19
CPT/HCPCS: 36415; 71045; 80053; 82550; 83690; 83735; 84484; 85025; 85379; 85610; 85651; 85730; 86140; 87635; 93005; 93010; 93017; 96372; 99284; C9803; G0378; J1650

== ENCOUNTER → 2022-07-13 10:35 | Outpatient (CLI) | payer OTHER, SELFPAY ==
[2022-06-18 06:23] VITALS: BMI 43.2
[2022-07-13 12:15] LABS: Cholesterol 177 mg/dL (140-199); HDL Cholesterol 37 mg/dL (40-60); LDL Cholesterol Calculated 107 mg/dL (<100); Triglycerides 163 mg/dL (35-150)
[2022-07-14 06:08] LABS: x Labcorp Estim. Avg Glu (eAG) 108 mg/dL (.); x Labcorp Hemoglobin A1c 5.4 % (4.8-5.6)
== END ==
PROVIDERS: PCP Family Medicine; Referring Provider Family Medicine; Visit Provider Family Medicine
DX: I10 Essential (primary) hypertension (principal); E66.9 Obesity, unspecified; R07.9 Chest pain, unspecified
CPT/HCPCS: 36415; 80061; 83036

== ENCOUNTER → 2022-07-26 07:34 | Outpatient (CLI) | payer OTHER, SELFPAY ==
[2022-06-18 06:23] VITALS: BMI 43.2
--- NOTE | 2022-07-27 02:51 | DI.NM.S_ITS ---
DATE OF SERVICE: 07/26/2022 PROCEDURE: Exercise stress test. INDICATIONS: Chest pain. CARDIAC STRESS: The patient underwent exercise stress test under the supervision of an attending staff. He walked on Davey protocol for 6 minutes and 41 seconds, achieved maximum heart rate of 184 which was 106% of target heart rate. Resting blood pressure 124/90 and peak blood pressure 186/90 mmHg. Achieved 7 METs of workload. JAHAIRA positive 37%. [place] fatigue. No chest pain. Baseline rhythm was sinus. During stress, no convincing ischemic changes seen. There was enhanced chronotropic response. Prolonged recovery. Even in 5 minutes in recovery, heart rate was 135 beats per minute. CONCLUSION: Exercise stress test is negative for inducible ischemia. Normal blood pressure response. Enhanced chronotropic response. The patient achieved a maximum heart rate of 184 which was 106 percent of target heart rate. Abnormal recovery as even 5 minutes in recovery, Heart rate was 135 with sinus tachycardia. Diminished exercise tolerance. The patient's weight is 310 pounds. Correlate clinically. Lenin Whalen - RAUDEL/maeve/sherrill doc#: [id number]/job#: [id number] dd: 07/26/2022 17:17:00 dt: 07/27/2022 02:43:00 DICTATING MD/COPIES TO: Alexandra Forde MD COPIES MNE: [place];
== END ==
PROVIDERS: Family Provider Family Medicine; PCP Family Medicine; Referring Provider Family Medicine; Visit Provider Family Medicine
DX: I10 Essential (primary) hypertension (principal); R07.9 Chest pain, unspecified; E66.9 Obesity, unspecified; E78.2 Mixed hyperlipidemia
CPT/HCPCS: 93017

== ENCOUNTER 2022-09-18 09:46 | Day surgery (SDC) | payer OTHER, SELFPAY ==
[2022-06-18 06:23] VITALS: BMI 43.2
[2022-08-10 10:10] VITALS: BMI 43.2
[2022-09-18 10:00] VITALS: BMI 41.8
[2022-09-18 10:18] VITALS: BP 148/97; PULSE 122; RESP 20; TEMP 36.3; O2SAT 97
[2022-09-18] MEDS: LACTATED RINGERS 1,000 ML 200 ML IV (10:20)
--- NOTE | 2022-09-18 11:22 | PM.HP.1 ---
History of Present Illness History of Present Illness Date Patient Seen: 09/18/22 Time Patient Seen: 11:22 Chief complaint: Screening Colonoscopy Narrative: The patient presents for colorectal screening. They have never had any previous examination for such. No personal or family history of colon cancer. On further history denies any recent gastrointestinal symptoms. No nausea, vomiting, abdominal pain, loss of appetite, unexplained weight loss, change in bowel habits, or blood per rectum. [facility] Medical History (Updated 07/13/22 @ 10:26 by Pablo Melgar DO) Benign essential HTN Biliary colic Hyperlipidemia, mixed Morbid obesity Surgical History Anesthesia History of cholecystectomy Status post cholecystectomy Family History Father Sharla's chorea Mother No problems noted. Grandfather Diabetes mellitus History of heart disease Grandmother No problems noted. Grandfather No problems noted. Grandmother Sharla's chorea Social History household members: family Smoking Status: Never smoker alcohol intake: current substance use type: does not use Meds Home Medications and Allergies Home Medications Medication Instructions Recorded Confirmed Type omeprazole 20 mg tablet,delayed 20 mg PO DAILY 07/13/22 09/18/22 History release atorvastatin 20 mg tablet (Lipitor) 20 mg PO BEDTIME cholesterol #90 08/10/22 09/18/22 Rx tabs losartan 100 mg tablet 100 mg PO DAILY blood pressure #90 08/10/22 09/18/22 Rx tabs Allergies Allergy/AdvReac Type Severity Reaction Status Date / Time No Known Drug Allergies Allergy Verified 09/18/22 09:53 Exam Vital Signs (past 8 hours): - 09/18/22 10:18 Temperature 97.4 F L Pulse Rate 122 H Respiratory Rate 20 Blood Pressure 148/97 H Pulse Oximetry 97 Oxygen Delivery Method Room Air Oxygen Delivery Method Room Air Narrative Exam Narrative: General adult man alert oriented no acute distress Extremities warm well perfused Assessment & Plan Assessment & Plan narrative: The patient requires colorectal screening and colonoscopy is recommended. Technical details were discussed. Risks, benefits, alternatives explained. Risks including but not limited to myocardial infarction, aspiration, bleeding, pain, missed lesion, incomplete examination, need for further radiographic studies, colonic perforation, and need for major abdominal surgery were discussed. All questions were answered to their satisfaction, and they are in agreement with this plan.
--- NOTE | 2022-09-18 11:40 | SUR.OPER ---
GLASSES IN LABELED CASE TO PACU WITH PATIENT.
[2022-09-18 11:48] VITALS: BP 118/68; PULSE 90; RESP 20; TEMP 36.1; O2SAT 97
[2022-09-18 11:53] VITALS: BP 117/71; PULSE 96; RESP 18; O2SAT 96
--- NOTE | 2022-09-18 11:54 | PM.OP.COLON ---
Operative Date/Time/Diagnoses Date of procedure: 09/18/22 Time of procedure: 11:54 Pre-op diagnosis: Colorectal screening Post-op diagnosis: same Procedure & Clinicians Study performed: Colonoscopy Same procedure as scheduled: Yes Indications: Colorectal screening Surgeon: Duglas Gan Procedure Notes Procedure in detail: The history and physical was performed/updated and the patient is ASA class is 2. The procedure was discussed in detail with the patient. Potential risks complications including infection, bleeding, missed diagnosis, perforation, need for surgery, and were explained. Their questions were answered and informed consent was obtained. Patient was brought to the procedure room and placed standard monitoring equipment. The patient's vital signs were monitored continuously throughout the entire procedure. Prior to starting time-out was performed. The patient was placed in the left lateral recumbent position. Procedural sedation was administered by anesthesia. Examination began with a thorough inspection of the perianal area there was no evidence of fissures, fistulae, external hemorrhoids or cutaneous malignancy. The colonoscopy scope was then placed into the anal canal and was advanced to the cecum, which was identified by the ileocecal valve, the appendiceal orifice and the confluence of the taenia. The scope was then slowly withdrawn examining colon thoroughly in all directions, irrigating it of any residual stool. Normal healthy colon. No masses or polyps. The patient tolerated the procedure well. They will be discharged once criteria are met. The prep was of good/excellent quality. The withdrawl time was 6 minutes. Specimen(s): none sent Impression: Normal colonoscopy Post-procedure Recommendations: Colonoscopy in 10 years Disposition: same day surgery
[2022-09-18 11:58] VITALS: BP 132/93; PULSE 97; RESP 16; O2SAT 98
[2022-09-18 12:19] VITALS: BP 129/93; PULSE 91; RESP 20; TEMP 36.6; O2SAT 99
== END 2022-09-18 12:19 | disposition home or self-care (01) ==
PROVIDERS: Family Provider Family Medicine; PCP Family Medicine; Referring Provider Surgery; Visit Provider Surgery
PROC: 0DJD8ZZ Inspection of Lower Intestinal Tract, Via Natural or Artificial Opening Endoscopic (ICD-10-PCS; CPT 45378; principal; 2022-09-18 11:00)
DX: Z12.11 Encounter for screening for malignant neoplasm of colon (principal)
CPT/HCPCS: 45378; J2704

== ENCOUNTER → 2023-12-18 09:10 | Outpatient (CLI) | payer OTHER, SELFPAY ==
[2022-08-10 10:10] VITALS: BMI 43.2
[2023-12-18 10:24] LABS: Alanine Aminotransferase 43 IU/L (<50); Albumin 3.8 g/dL (3.5-5.0); Albumin Globulin Ratio 1.3 (1.0-2.8); Alkaline Phosphatase 91 U/L (38-126); Aspartate Aminotransferase 30 IU/L (17-59); BUN Creatinine Ratio 14.5 (6-22); Bilirubin Total 0.8 mg/dL (0.2-1.3); Blood Urea Nitrogen 12 mg/dL (9-20); Calcium 9.4 mg/dL (8.4-10.2); Carbon Dioxide 29 mmol/L (22-32); Chloride 102 mmol/L (98-107); Cholesterol 100 mg/dL (140-199); Estimated Glomerular Filt Rate > 60 mL/min (>60); Glucose 97 mg/dL (70-100); HDL Cholesterol 36 mg/dL (40-60); HEMOLYSIS < 15 (0-50); LDL Cholesterol Calculated 41 mg/dL (<100); Potassium 4.1 mmol/L (3.4-5.1); Sodium 138 mmol/L (137-145); Total Protein 6.8 g/dL (6.3-8.2); Triglycerides 117 mg/dL (35-150)
[2023-12-18 10:28] LABS: Hemoglobin A1C% w Est Avg Glu 5.2 % (4.0-6.0)
[2023-12-18 11:12] LABS: HIV 1 & 2 Ab/Ag 4th Gen Combo NEGATIVE (NEGATIVE); Hep C Virus Ab w/Reflex Quant NEGATIVE s/c (NEGATIVE)
== END ==
PROVIDERS: Family Provider Family Medicine; PCP Family Medicine; Referring Provider Family Medicine; Visit Provider Family Medicine
DX: E66.01 Morbid (severe) obesity due to excess calories (principal); E78.2 Mixed hyperlipidemia; I10 Essential (primary) hypertension; Z11.4 Encounter for screening for human immunodeficiency virus [HIV]; Z11.59 Encounter for screening for other viral diseases
CPT/HCPCS: 36415; 80053; 80061; 83036; 86803; 87389

== ENCOUNTER 2024-12-14 10:31 | Emergency (ER) | payer OTHER, SELFPAY ==
[2022-08-10 10:10] VITALS: BMI 43.2
[2024-12-14] VITALS (12 sets, daily range): BP systolic 138–173; BP diastolic 77–95; PULSE 79–115; RESP 15–26; TEMP 36.9; O2SAT 95–99; BMI 40.4
--- NOTE | 2024-12-14 11:22 | EKG_ITS ---
[address] [address] [address] [address] Test Date: 2024-12-14 Pat Name: Lenin Whalen Department: Room: Gender: Male Polysomnographic Tech: TAMMI : 1975 Requested By: Order Number: [id number] Reading MD: Dash Aguilar MD Measurements Intervals [place] Rate: 101 P: 34 RI: 152 QRS: 13 QRSD: 94 T: 30 QT: 352 QTc: 456 Interpretive Statements Sinus tachycardia Electronically Signed On 12-14-2024 15:07:55 PDT by Dash Aguilar MD
--- NOTE | 2024-12-14 11:22 | DI.RAD.S_ITS ---
PROCEDURE: XR CHEST 1V INDICATIONS: Chest Pain TECHNIQUE: One view of the chest was acquired. COMPARISON: [facility], CR, XR CHEST 1V, 06/18/2022, 1:41. FINDINGS: Surgical changes and devices: None. Lungs and pleura: Lungs are clear. No pleural effusions or pneumothorax. Mediastinum: Mediastinal contours appear normal. Heart size is normal. Bones and chest wall: No suspicious bony lesions. Overlying soft tissues appear unremarkable. IMPRESSION: No acute cardiopulmonary abnormality is seen. Dictated by: Angeles Acharya M.D. on 12/14/2024 at 12:58 Approved by: Angeles Acharya M.D. on 12/14/2024 at 12:58
--- NOTE | 2024-12-14 11:34 | ED_ITS ---
HPI - Fall General Chief Complaint: Fall Stated Complaint: Fell 5 days ago left ankle pain Time Seen by Provider: 12/14/24 11:16 Source: patient Mode of arrival: Wheelchair History of Present Illness HPI Narrative: Patient is a 49-year-old male history of hypertension hyperlipidemia diabetes presenting today with left ankle pain. He reports that 3 days ago he was in the bathroom sitting on the toilet when he fell in his neck landed on the bath tub. He has not had any headache nausea vomiting or weakness since then however his left ankle has becoming more painful. It is more red than usual it does not seem to be getting worse but it is not getting any better. Denies any kind of fever or chills. Difficulty walking. Related Data Home Medications ?Medication ?Instructions ?Recorded ?Confirmed omeprazole 20 mg tablet,delayed 20 mg PO DAILY PRN 12/17/23 release Previous Rx's ?Medication ?Instructions ?Recorded losartan 100 mg tablet 100 mg PO DAILY blood pressu re #90 11/19/23 tabs Subcutaneous Supplies Kit #12 ea 12/17/23 atorvastatin 20 mg tablet 20 mg PO ONCE PM for cholest nathalie 12/17/23 #90 tabs semaglutide 0.25 mg or 0.5 mg (2 0.25 mg (0.368 mL) ARAIZA BCUT QWEEK #9 12/17/23 mg/3 mL) subcutaneous pen injector mL cefdinir 300 mg capsule 300 mg PO Q12H #14 caps 11/30 08/23 Allergies Allergy/AdvReac Type Severity Reaction Status Date / Time No Known Drug Allergies Allergy Verified 12/14/24 11:00 Patient History Medical History Morbid obesity Hyperlipidemia, mixed Benign essential HTN Biliary colic Surgical History Anesthesia Status post cholecystectomy History of cholecystectomy Family History Father Alexander's chorea Mother No problems noted. Grandfather Diabetes mellitus History of heart disease Grandmother No problems noted. Grandfather No problems noted. Grandmother Alexander's chorea Social History household members: family Smoking Status: Never smoker alcohol intake: current substance use type: does not use Smoking Status: Never smoker alcohol intake frequency: holidays/special occasions only Exam Initial Vital Signs Initial Vital Signs: Vital Signs Temperature 98.5 F 12/14/24 10:58 Pulse Rate 115 H 12/14/24 10:58 Respiratory Rate 20 12/14/24 10:58 Blood Pressure 138/87 12/14/24 10:58 Pulse Oximetry 96 12/14/24 10:58 Oxygen Delivery Method Room Air 12/14/24 10:58 GENERAL: Alert well-appearing 49-year-old woman and in no acute distress. HEENT: Head atraumatic,EOMI, pupils reactive, face symmetric, moist mucous membranes NECK: He does have some midline cervical tenderness around C2 and C3 but full flexion-extension and rotation CARDIOVASCULAR: Regular rate and rhythm without murmurs, rubs or gallops. RESPIRATORY: Breath sounds equal bilaterally, no wheezes rales or rhonchi. ABDOMEN: Soft, nontender. Normoactive bowel sounds all 4 quadrants. No guarding or rebound. EXTREMITIES: Normal range of motion, no clubbing or edema. Neurovascularly intact Hips and pelvis stable Left lower extremity knee is stable able to flex and extend ankle is swollen foot is stable Achilles intact distal pedal pulse intact NEUROLOGICAL: Alert and oriented x4.Normal gait and speech. Cranial nerves II through XII grossly intact. SKIN: Erythema left lower extremity noncircumferential blanchable. Course Orders Ordered: ED Orders 12/14/24 11:22 XR chest 1V Stat EKG-12 Lead Stat 12/14/24 11:33 Complete Blood Count AUTO DIFF Stat Comprehensive Metabolic Panel Stat Lactate (Lactic Acid) Stat Lipase Stat Magnesium Stat NT-proBNP (BNP-Adult 18+) Stat PTT Partial Thromboplastin Que Stat Procalcitonin Stat Prothrombin Time INR Stat Troponin & CK Cardiac Panel Stat 12/14/24 11:40 XR ankle LT min 3V Stat 12/14/24 11:44 CT cervical spine wo con Stat 12/14/24 11:54 Blood Culture Stat Discontinued Medications Aspirin (Aspirin 81 Mg Chew Tab) 324 mg PO NOW ONE Stop: 12/14/24 11:23 Ceftriaxone Sodium 1,000 mg/ (Sodium Chloride) 100 mls @ 200 mls/hr IV NOW ONE Stop: 12/14/24 13:58 Last Infusion: 12/14/24 15:41 Dose: Infused Documented By: Admin: 12/14/24 14:39 Dose: 200 mls/hr Documented By: TREMAINE Vital Signs Vital signs: Vital Signs - 8 hr 12/14/24 10:58 12/14/24 11:13 12/14/24 11:13 Temperature 98.5 F Pulse Rate 115 H 111 H Respiratory Rate 20 Blood Pressure 138/87 155/94 H Pulse Oximetry 96 97 Oxygen Delivery Method Room Air 12/14/24 11:30 12/14/24 11:33 12/14/24 11:33 Temperature Pulse Rate 97 H 97 H Respiratory Rate 19 15 Blood Pressure 156/87 H Pulse Oximetry 95 95 Oxygen Delivery Method 12/14/24 12:00 12/14/24 12:00 12/14/24 12:21 Temperature Pulse Rate 91 H Respiratory Rate 23 Blood Pressure 157/95 H 167/87 H Pulse Oximetry 96 Oxygen Delivery Method 12/14/24 12:21 12/14/24 12:30 12/14/24 12:30 Temperature Pulse Rate 92 H 86 Respiratory Rate 18 22 Blood Pressure 154/79 H Pulse Oximetry 98 95 Oxygen Delivery Method 12/14/24 13:00 12/14/24 13:00 12/14/24 13:30 Temperature Pulse Rate 85 Respiratory Rate 21 Blood Pressure 139/77 173/95 H Pulse Oximetry 96 Oxygen Delivery Method 12/14/24 13:30 12/14/24 14:00 12/14/24 14:00 Temperature Pulse Rate 95 H 81 Respiratory Rate 25 H Blood Pressure 164/83 H Pulse Oximetry 96 99 Oxygen Delivery Method 12/14/24 14:30 12/14/24 14:30 12/14/24 15:00 Temperature Pulse Rate 81 79 Respiratory Rate 26 H 25 H Blood Pressure 150/86 H Pulse Oximetry 98 99 Oxygen Delivery Method MDM - Fall Lab Data 12/14/24 11:33 12/14/24 11:33 Labs: Lab Results 12/14/24 Range/Units 11:33 WBC 6.5 (4.5-11.0) X10^3/uL RBC 5.10 (4.5-5.9) X10^6/uL Hgb 15.3 (13.5-17.5) g/dL Hct 44.7 (41-53) % MCV 87.6 (80-100) fL MCH 30.1 (26-34) PG MCHC 34.3 (30-36) % RDW 13.3 (11.6-14.8) % Plt Count 228 (150-400) X10^3/uL Neut % (Auto) 56.6 (50-75) % Lymph % (Auto) 29.4 (25-40) % [place] % (Auto) 8.7 (3-14) % Eos % (Auto) 4.4 H (2-4) % Baso % (Auto) 0.9 (0-2) % Neut # (Auto) 3700 (5207-6214) /uL Lymph # (Auto) 1900 (2618-6870) /uL [place] # (Auto) 600 (0-900) /uL Eos # (Auto) 300 (0-450) /uL Baso # (Auto) 100 (0-100) /uL PT 12.1 (9.4-12.5) SECONDS INR 1.1 (0.9-1.3) APTT 30 (25.1-36.5) SECONDS Sodium 138 (137-145) mmol/L Potassium 3.4 (3.4-5.1) mmol/L Chloride 104 (98-107) mmol/L Carbon Dioxide 24 (22-32) mmol/L BUN 9 (9-20) mg/dL Creatinine 0.82 (0.66-1.25) mg/dL Estimated GFR > 60 (>60) mL/min BUN/Creatinine Ratio 11.0 (6-22) Glucose 107 H (70-99) mg/dL Lactate 1.3 (0.7-2.1) mmol/L Calcium 8.7 (8.4-10.2) mg/dL Magnesium 1.8 (1.6-2.3) mg/dL Total Bilirubin 1.2 (0.2-1.3) mg/dL AST 26 (17-59) IU/L ALT 41 (<50) IU/L Alkaline Phosphatase 78 (38-126) U/L Total Creatine Kinase 39 L (55-170) U/L Troponin I < 0.012 (0.01-0.034) ng/mL NT-Pro-B Natriuret Pep 99 (<125) pg/mL Total Protein 7.5 (6.3-8.2) g/dL Albumin 4.0 (3.5-5.0) g/dL Globulin 3.5 (1.7-4.1) g/dL Albumin/Globulin Ratio 1.1 (1.0-2.8) Lipase 53 (23-300) U/L Procalcitonin 0.259 (<0.5) ng/mL Imaging Data CT - cervical spine: Radiologist's Impression: PROCEDURE: CT CERVICAL SPINE WO CON INDICATIONS: fall TECHNIQUE: Noncontrast 3 mm thick sections acquired from the skull base to the T4 level. Sagittal and coronal reformats were then constructed. For radiation dose reduction, the following was used: automated exposure control, adjustment of mA and/or kV according to patient size. COMPARISON: None. FINDINGS: Image quality: Excellent. Bones: No fractures or dislocations. No significant cervical spondylosis. Visualized superior ribs are intact. Soft tissues: Prevertebral soft tissues are normal in thickness. No paravertebral hematomas. No apical pneumothoraces. IMPRESSION: No displaced fracture or traumatic subluxation. Dictated by: Ricki Gallegos M.D. on 12/14/2024 at 13:35 Extremity x-ray #1: Radiologist's Impression: PROCEDURE: XR ANKLE LT MIN 3V INDICATIONS: fall TECHNIQUE: 3 views of the ankle were acquired. COMPARISON: None. FINDINGS: Bones: No fractures or dislocations. Ankle mortise is normally aligned. No suspicious bony lesions. Soft tissues: No tibiotalar joint effusion. Achilles tendon appears normal. IMPRESSION: No acute bony abnormality or significant effusion. Dictated by: Angeles Acharya M.D. on 12/14/2024 at 12:58 Chest x-ray: Radiologist's Impression: PROCEDURE: XR CHEST 1V INDICATIONS: Chest Pain TECHNIQUE: One view of the chest was acquired. COMPARISON: [facility], , XR CHEST 1V, 06/18/2022, 1:41. FINDINGS: Surgical changes and devices: None. Lungs and pleura: Lungs are clear. No pleural effusions or pneumothorax. Mediastinum: Mediastinal contours appear normal. Heart size is normal. Bones and chest wall: No suspicious bony lesions. Overlying soft tissues appear unremarkable. IMPRESSION: No acute cardiopulmonary abnormality is seen. Dictated by: Angeles Acharya M.D. on 12/14/2024 at 12:58 ECG Data Attestation: I personally reviewed and interpreted this ECG as follows: Interpretation: Normal sinus rhythm rate 101 IL interval 152 QRS [address] changes MDM Narrative Medical decision making narrative: MDM CC: Left ankle pain Complicating co-morbidities: Diabetes hypertension hyperlipidemia Data collected from: Patient Medical records reviewed: PCP notes reviewed hypertension hyperlipidemia morbid obesity Differential considered: Cellulitis fracture, sprain, DVT Exam documented above, pertinent findings include: Alert well-appearing 49-year-old male he does have some tenderness in his spine but 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 Left lower extremity does have some erythema no gross bony deformity but some mild swelling noted neurovascularly intact Lab Test results independently reviewed as above. Pertinent findings: CBC no leukocytosis no anemia Coags within normal limits CMP electrolytes within normal limits no SHAY glucose 107 no evidence of DKA Lactate 1.3, procalcitonin 0.259 Bilirubin liver enzymes within normal limits [place] negative Independently reviewed EKG as above Sinus rhythm Imaging studies independently reviewed: Cervical spine CT no fracture Chest x-ray no abnormality Ankle x-ray no fracture Consultations: none Treatments: Rocephin Re-evaluations: [ ] Discussion: Patient 49-year-old male presenting today with right ankle pain. He fell a couple of days go no evidence of fracture her injury on imaging found. It his left leg is erythematous, concerning for cellulitis. I actually have a low suspicion for deep VT calf is nontender. No significant leukocytosis lactate within normal limits no evidence of sepsis vitals are stable. At this time he is given 1 dose of Rocephin here in the ED. Due to his diabetes and increased risk given a prescription for cefdinir Discharge Plan Departure Patient Disposition: Home Clinical Impression: Cellulitis of left leg Instructions: Cellulitis Activity Restrictions/Additional Instructions: *You have been diagnosed with cellulitis left leg *What to do: At this time I suspect you have an infection in the left leg. It should start to get better with antibiotics *Continue to take medications as directed Cefdinir 300 mg twice a day for 7 days--safeway *Follow up with your primary care provider in 2-3 days or call [phone] *Return to ER if you should have increasing redness fever confusion or any new, worsening or concerning symptoms Prescriptions: New cefdinir 300 mg capsule 300 mg PO Q12H Qty: 14 0RF No Action losartan 100 mg tablet 100 mg PO DAILY Qty: 90 3RF omeprazole 20 mg tablet,delayed release (DR/EC) 20 mg PO DAILY PRN atorvastatin 20 mg tablet 20 mg PO ONCE PM MDD 20mg Qty: 90 3RF Rx Instructions: Take one tablet by mouth every evening semaglutide 0.25 mg or 0.5 mg (2 mg/3 mL) pen injector 0.25 mg SUBCUT QWEEK Qty: 9 1RF Rx Instructions: for 4 weeks, then increase to 0.5 mg subQ weekly. ok to compound. 1 mg/mL (DME) Subcutaneous Supplies Kit See Rx Instructions .ROUTE .MEDSUPPLY Qty: 12 3RF Rx Instructions: As directed with semaglutide Referrals: Pablo Melgar DO [Primary Care Provider, Family Practice] Stand Alone Forms: Patient Portal/API
--- NOTE | 2024-12-14 11:40 | DI.RAD.S_ITS ---
PROCEDURE: XR ANKLE LT MIN 3V INDICATIONS: fall TECHNIQUE: 3 views of the ankle were acquired. COMPARISON: None. FINDINGS: Bones: No fractures or dislocations. Ankle mortise is normally aligned. No suspicious bony lesions. Soft tissues: No tibiotalar joint effusion. Achilles tendon appears normal. IMPRESSION: No acute bony abnormality or significant effusion. Dictated by: Angeles Acharya M.D. on 12/14/2024 at 12:58 Approved by: Angeles Acharya M.D. on 12/14/2024 at 12:58
[2024-12-14 11:42] LABS: Add Manual Diff / Slide Review NO; Hematocrit 44.7 % (41-53); Hemoglobin 15.3 g/dL (13.5-17.5); Lymphocytes Absolute Auto 1900 /uL (1100-4500); Mean Corpuscular HGB Conc 34.3 % (30-36); Mean Corpuscular Hemoglobin 30.1 PG (26-34); Mean Corpuscular Volume 87.6 fL (80-100); Platelet Count 228 X10^3/uL (150-400)
--- NOTE | 2024-12-14 11:44 | DI.CT.S_ITS ---
PROCEDURE: CT CERVICAL SPINE WO CON INDICATIONS: fall TECHNIQUE: Noncontrast 3 mm thick sections acquired from the skull base to the T4 level. Sagittal and coronal reformats were then constructed. For radiation dose reduction, the following was used: automated exposure control, adjustment of mA and/or kV according to patient size. COMPARISON: None. FINDINGS: Image quality: Excellent. Bones: No fractures or dislocations. No significant cervical spondylosis. Visualized superior ribs are intact. Soft tissues: Prevertebral soft tissues are normal in thickness. No paravertebral hematomas. No apical pneumothoraces. IMPRESSION: No displaced fracture or traumatic subluxation. Dictated by: Ricki Gallegos M.D. on 12/14/2024 at 13:35 Approved by: Ricki Gallegos M.D. on 12/14/2024 at 13:36
[2024-12-14 11:49] LABS: INR 1.1 (0.9-1.3); Prothrombin Time 12.1 SECONDS (9.4-12.5)
[2024-12-14 11:52] LABS: PTT Partial Thromboplastin Tim 30 SECONDS (25.1-36.5)
[2024-12-14 11:56] LABS: Alanine Aminotransferase 41 IU/L (<50); Albumin 4.0 g/dL (3.5-5.0); Albumin Globulin Ratio 1.1 (1.0-2.8); Alkaline Phosphatase 78 U/L (38-126); Blood Urea Nitrogen 9 mg/dL (9-20); Calcium 8.7 mg/dL (8.4-10.2); Carbon Dioxide 24 mmol/L (22-32); Chloride 104 mmol/L (98-107); Creatine Kinase 39 U/L (55-170); Estimated Glomerular Filt Rate > 60 mL/min (>60); Globulin 3.5 g/dL (1.7-4.1); Glucose 107 mg/dL (70-99); HEMOLYSIS < 15 (0-50); Lipase 53 U/L (23-300); Magnesium 1.8 mg/dL (1.6-2.3); Potassium 3.4 mmol/L (3.4-5.1); Sodium 138 mmol/L (137-145); Total Protein 7.5 g/dL (6.3-8.2)
[2024-12-14 12:09] LABS: NT-proBNP (BNP-Adult 18+) 99 pg/mL (<125); Troponin I < 0.012 ng/mL (0.01-0.034)
[2024-12-14 12:11] LABS: Lactate (Lactic Acid) 1.3 mmol/L (0.7-2.1)
[2024-12-14 12:35] LABS: Procalcitonin 0.259 ng/mL (<0.5)
== END 2024-12-14 15:30 | disposition home or self-care (01) ==
PROVIDERS: Emergency Provider Emergency Medicine; Family Provider Family Medicine; PCP Family Medicine
DX: L03.116 Cellulitis of left lower limb (principal); R07.9 Chest pain, unspecified; W18.12XA Fall from or off toilet with subsequent striking against object, initial encounter
CPT/HCPCS: 36415; 71045; 72125; 73610; 80053; 82550; 83605; 83690; 83735; 83880; 84145; 84484; 85025; 85610; 85730; 87040; 93005; 93010; 99284; J0696

== ENCOUNTER → 2025-01-05 09:26 | Outpatient (CLI) | payer OTHER, SELFPAY ==
[2022-08-10 10:10] VITALS: BMI 43.2
[2025-01-05 10:31] LABS: Hemoglobin A1C% w Est Avg Glu 5.4 % (4.0-6.0)
[2025-01-05 15:11] LABS: Cholesterol 113 mg/dL (140-199); HDL Cholesterol 45 mg/dL (40-60); Triglycerides 79 mg/dL (35-150)
== END ==
PROVIDERS: Family Provider Family Medicine; PCP Family Medicine; Referring Provider Family Medicine; Visit Provider Family Medicine
DX: Z00.00 Encounter for general adult medical examination without abnormal findings (principal); E66.01 Morbid (severe) obesity due to excess calories; E78.2 Mixed hyperlipidemia; I10 Essential (primary) hypertension
CPT/HCPCS: 36415; 80061; 83036